=== PATIENT | male | born 1960 | race African-American/Black ===

== ENCOUNTER 2020-10-29 11:28 | Outpatient (REF) | payer OTHER, SELFPAY | END 2020-10-29 11:29 | disposition home or self-care (01) | LOC: HO.LAB 11:28 | PROVIDERS: Visit Provider Internal Medicine | DX: Z20.828 Contact with and (suspected) exposure to other viral communicable diseases (principal) | CPT/HCPCS: C9803; U0003 ==

== ENCOUNTER 2020-11-06 13:42 | Outpatient (REF) | payer OTHER, SELFPAY ==
[2020-11-06 14:15] LABS: MANUAL DIFF FLAG NO
[2020-11-06 14:23] LABS: Basophils Absolute Auto 0.1 X10*3/uL (0.0-0.2); Basophils Percent Auto 0.5 % (0-2); Eosinophils Absolute Auto 0.3 X10*3/uL (0.0-0.4); Eosinophils Percent Auto 2.6 % (0-4); Hematocrit 40.7 % (42-52); Imm Gran Abs Auto 0.06 X10*3/uL (0.00-0.03); Imm Gran Pct Auto 0.5 % (0.0-0.4); Lymphocytes Absolute Auto 3.8 X10*3/uL (1.2-4.9); Lymphocytes Percent Auto 31.2 % (20-40); Mean Corpuscular HGB Conc 31.9 g/dl (31.0-36.0); Mean Corpuscular Hemoglobin 23.5 pg (27.0-33.0); Mean Corpuscular Volume 73.6 fL (80-98); Mean Platelet Volume 9.9 fL (9.4-12.4); Monocytes Absolute Auto 0.6 X10*3/uL (0.1-1.2); Monocytes Percent Auto 4.7 % (2-11); Neutrophils Absolute Auto 7.3 X10*3/uL (2.0-8.3); Neutrophils Percent Auto 60.5 % (45-73); Platelet Count 416 X10*3/uL (160-400); Red Blood Count 5.53 X10*6/uL (4.60-5.80); Red Cell Distribution Width 15.5 % (11.0-16.0); White Blood Count 12.1 X10*3/uL (4.8-10.8)
[2020-11-06 14:46] LABS: Alanine Aminotransferase 17 U/L (0-40); Albumin Level 3.7 g/dL (3.5-5.0); Alkaline Phosphatase 83 U/L (39-117); Anion Gap 11 (12-20); Aspartate Amino Transferase 12 U/L (5-37); Bilirubin Total 0.4 mg/dL (0.0-1.0); Blood Urea Nitrogen 14 mg/dL (9-16); Calcium 9.1 mg/dL (8.4-10.2); Carbon Dioxide 26 mmol/L (22-29); Chloride 104 mmol/L (96-108); Cholesterol 174 mg/dL; Estimated Glomerular Filt Rate > 60; Glucose Random 139 mg/dL (60-115); HDL Cholesterol 43 mg/dL; LDL Cholesterol Calculated 117 mg/dl; Potassium 4.1 mmol/l (3.3-5.1); Sodium 137 mmol/L (135-145); Total Protein 6.3 g/dL (6.5-8.0); Triglycerides 70 mg/dL
[2020-11-06 14:52] LABS: Estimated Average Glucose 120 mg/dL; Hemoglobin A1c % 5.8 %
[2020-11-06 15:07] LABS: Prostate Specific Antigen 0.43 ng/mL (<0.05-4.0); Vitamin D 25-OH Total 15.2 ng/mL (>30)
== END 2020-11-06 13:43 | disposition home or self-care (01) ==
LOC: HO.LAB 13:42
PROVIDERS: Visit Provider Nurse Practitioner Family
DX: Z00.00 Encounter for general adult medical examination without abnormal findings (principal); Z13.220 Encounter for screening for lipoid disorders; Z12.5 Encounter for screening for malignant neoplasm of prostate; Z13.21 Encounter for screening for nutritional disorder
CPT/HCPCS: 36415; 80053; 80061; 82306; 83036; 84153; 85025

== ENCOUNTER 2020-11-18 12:30 | Outpatient (REF) | payer OTHER, SELFPAY ==
--- NOTE | 2020-11-18 12:35 | XR_ITS ---
EXAMINATION: XR CHEST CLINICAL INFORMATION: Shortness of breath, COPD. COMPARISON: 02/06/2017 chest radiographs. TECHNIQUE: 2 views of the chest were obtained. FINDINGS: No significant abnormality is noted involving the heart, lungs, mediastinum, bony thorax or soft tissues. XR/XR chest 2V IMPRESSION: No acute cardiopulmonary process.
== END 2020-11-18 12:31 | disposition home or self-care (01) ==
LOC: HO.XRAY 12:30
PROVIDERS: Visit Provider Nurse Practitioner Family
DX: J44.1 Chronic obstructive pulmonary disease with (acute) exacerbation (principal); F17.200 Nicotine dependence, unspecified, uncomplicated; Z92.89 Personal history of other medical treatment
CPT/HCPCS: 71046

== ENCOUNTER 2021-11-25 14:46 | Outpatient (REF) | payer OTHER, SELFPAY ==
--- NOTE | ~2021-11-25 | XR_ITS ---
EXAMINATION: XR CHEST CLINICAL INFORMATION: Screening for respiratory tuberculosis COMPARISON: Chest radiograph from 11/18/2020 TECHNIQUE: 2 views of the chest were obtained. FINDINGS: No focal consolidation. No pneumothorax. Trachea is midline. Cardiomediastinal silhouette is not enlarged. No large pleural effusions. Degenerative changes of the thoracolumbar spine. Soft tissues are unremarkable. XR/XR chest 2V IMPRESSION: No acute cardiopulmonary process.
== END 2021-11-25 14:47 | disposition home or self-care (01) ==
LOC: HO.XRAY 14:46
PROVIDERS: PCP Nurse Practitioner Family; Visit Provider Nurse Practitioner Family
DX: Z22.7 Latent tuberculosis (principal)
CPT/HCPCS: 71046

== ENCOUNTER → 2022-01-17 16:00 | Outpatient (BNVA) | payer OTHER, SELFPAY | PROVIDERS: PCP Nurse Practitioner Family; Referring Provider Nurse Practitioner Family; Visit Provider Nurse Practitioner | DX: R19.5 Other fecal abnormalities (principal); J44.9 Chronic obstructive pulmonary disease, unspecified; G47.33 Obstructive sleep apnea (adult) (pediatric); Z92.89 Personal history of other medical treatment; Z99.89 Dependence on other enabling machines and devices | CPT/HCPCS: 99202 ==

== ENCOUNTER 2022-03-13 01:54 | Emergency (ER) | payer OTHER, SELFPAY ==
--- NOTE | ~2022-03-13 | CT_ITS ---
EXAMINATION: CT HEAD WITHOUT CONTRAST CLINICAL INFORMATION: Headache COMPARISON: None. TECHNIQUE: Contiguous axial imaging was performed from the skull base to vertex without intravenous contrast. This CT examination was performed using dose optimization techniques as appropriate, variously including the following: * Automated exposure control * Adjustment of mA and/or kV according to patient size (this includes techniques or standardized protocols for targeted exams where dose is matched to indication/reason for exam; i.e. extremities or head) Use of iterative reconstruction technique DLP: 776 mGy-cm. FINDINGS: There is no evidence of acute intracranial hemorrhage or territorial infarction. No abnormal mass effect or midline shift is seen. [place] to white matter differentiation is well preserved. No extra-axial fluid collections are identified. No hydrocephalus. No significant volume loss. There is no abnormal attenuation within the brain parenchyma. The osseous structures and soft tissues are normal. Moderate opacification of the bilateral ethmoid air cells and frontal sinuses. The mastoid air cells and visualized portions of the paranasal sinuses are otherwise well aerated. CT/CT head/brain wo con IMPRESSION: No acute intracranial pathology.
[2022-03-13 02:09] VITALS: BP 124/73; PULSE 85; RESP 18; TEMP 36.2; O2SAT 100; BMI 41.9
[2022-03-13 02:40] VITALS: BP 145/72; PULSE 71; RESP 14; O2SAT 100
--- NOTE | 2022-03-13 02:48 | ED.HA ---
HPI - Headache General Chief Complaint: Headache Stated Complaint: swollen head/migraine Time Seen by Provider: 03/13/22 02:46 History of Present Illness HPI Narrative: 61 years old presented with having headache that is on and off. This time lasting last 2 hours. Mostly over the left side. There is no fever no chills. No neck pain. No diaphoresis. No focal weakness. History of chronic pain history of COPD history of chronic back pain history of hypertension patient from home. No chest pain or shortness breath no diaphoresis no focal weakness. No changes in vision. No photophobia. Related Data Home Medications Medication Instructions Recorded Confirmed aspirin 81 mg tablet,delayed 81 mg PO DAILY 01/17/22 release atorvastatin 40 mg tablet 40 mg PO BEDTIME 01/17/22 chlorthalidone 25 mg tablet 12.5 mg PO QAM 01/17/22 fluticasone propionate 110 2 puff PO BID 01/17/22 mcg/actuation HFA aerosol inhaler (Flovent HFA) ibuprofen 800 mg tablet 800 mg PO TID 01/17/22 lisinopril 30 mg tablet 30 mg PO DAILY 01/17/22 melatonin 5 mg tablet 5 - 10 mg PO BEDTIME PRN 01/17/22 tiotropium 2.5 mcg-olodaterol 2.5 2 puff INHALATION DAILY 01/17/22 mcg/actuation mist for inhalation (Stiolto Respimat) Previous Rx's Medication Instructions Recorded gabapentin 600 mg tablet 600 mg PO TID #270 tab 09/15/20 peg 3350-electrolytes 236 240 ml PO Q10M 1 Days #4000 ml 01/17/22 gram-22.74 gram-6.74 gram-5.86 gram solution (Golytely) Allergies Allergy/AdvReac Type Severity Reaction Status Date / Time Iodinated Contrast Media Allergy Intermediate HIVES Verified 03/13/22 02:13 [IV Dye, Iodine Containing] Review of Systems Review of Systems: Positive headache on the left side no nausea no vomiting no focal weakness. No fever no chills Yes all other systems are reviewed and are negative [facility] Past Medical History Attestation statement: The following information was validated with the patient. Social History Social History Advance Directives: No Advance Directives Information Provided: Yes Physical Exam Vital Signs: Vital Signs: Last Vital Signs Temp 97.2 F 03/13/22 02:09 Pulse 71 03/13/22 02:40 Resp 14 03/13/22 02:40 BP 145/72 H 03/13/22 02:40 Pulse Ox 100 03/13/22 02:40 BMI result Body Mass Index 41.9 Appearance: Alert. Oriented X3. No acute distress. Eyes: Pupils equal, round and reactive to light. ENT: Pharynx normal. Neck: Normal inspection. Neck supple. No lymph nodes noted. No crepitus CVS: Normal heart rate and rhythm. Pulses normal. Normal S1 and S2 Respiratory: No respiratory distress. Breath sounds normal. No Wheezing. No rales Abdomen: Soft and nontender. No rigidity. No distention. good BS x4 Skin: Skin warm and dry. Normal skin color. Normal skin turgor. Extremities: No lower extremity edema. Neurovascular intact to all extremities. No Lacerations. No Rash Neuro: Oriented X 3. No motor deficit. No sensory deficit. Moving all extermities. No slurred speech MDM - Headache MDM Narrative Medical decision making narrative: CT of the head was grossly negative for any acute evidence of bleeding. Gross vision intact. Patient's sed rate was 10. No evidence for temporal arteritis. Electrolytes unremarkable. Patient left prior to discharge. In stable condition. Lab Data Result diagrams: 03/13/22 03:52 03/13/22 03:52 Labs: Lab Results 03/13/22 03/13/22 03/13/22 Range/Units 03:52 03:52 03:52 WBC 12.7 H (4.8-10.8) X10*3/uL RBC 5.48 (4.60-5.80) X10*6/uL Hgb 13.1 L (14.0-18.0) g/dl Hct 40.9 L (42.0-52.0) % MCV 74.6 L (80.0-98.0) fL MCH 23.9 L (27.0-33.0) pg MCHC 32.0 (31.0-36.0) g/dl RDW 15.8 (11.0-16.0) % Plt Count 353 (160-400) X10*3/uL MPV 9.2 L (9.4-12.4) fL Immature Gran % (Auto) 0.2 (0.0-0.4) % Neut % (Auto) 59.1 (45-73) % Lymph % (Auto) 27.8 (20-40) % Hood % (Auto) 7.4 (2-11) % Eos % (Auto) 4.9 H (0-4) % Baso % (Auto) 0.6 (0-2) % Lymph # (Auto) 3.5 (1.2-4.9) X10*3/uL Hood # (Auto) 0.9 (0.1-1.2) X10*3/uL Eos # (Auto) 0.6 H (0.0-0.4) X10*3/uL Baso # (Auto) 0.1 (0.0-0.2) X10*3/uL Abs Immat Gran (auto) 0.03 (0.00-0.03) X10*3/uL Absolute Neuts (auto) 7.5 (2.0-8.3) x10*3/uL Absolute Nucleated RBC 0.000 (0.0-0.012) X10*3/uL Nucleated RBC % (auto) 0.0 (0.0-0.2) /100WBC ESR 10 (0-15) MM/HR Sodium 134 L (135-145) mmol/L Potassium 4.0 (3.3-5.1) mmol/L Chloride 101 (96-108) mmol/L Carbon Dioxide 26 (22-29) mmol/L Anion Gap 11 L (12-20) BUN 19 H (9-16) mg/dL Creatinine 0.77 (0.5-1.4) mg/dL Estim Creat Clear Calc 129.8 Estimated GFR > 60 Random Glucose 117 H (60-115) mg/dL Calcium 9.5 (8.4-10.2) mg/dL C-Reactive Protein 1.44 H (< or = 0.50) mg/dL Discharge Plan Discharge Clinical Impression: Headache Patient Disposition: Elopement Prescriptions: No Action gabapentin 600 mg tablet 600 mg PO TID Qty: 270 1RF peg 3350-electrolytes [Golytely] 236-22.74-6.74 -5.86 gram recon soln 240 ml PO Q10M 1 Days Qty: 4000 0RF Rx Instructions: until fecal effluent is clear; do not exceed a total volume of 2,000 mL lisinopril 30 mg tablet 30 mg PO DAILY 0RF ibuprofen 800 mg tablet 800 mg PO TID 0RF chlorthalidone 25 mg tablet 12.5 mg PO QAM 0RF Stiolto Respimat 2.5-2.5 mcg/actuation mist 2 puff inhalation DAILY 0RF Flovent HFA 110 mcg/actuation HFA aerosol inhaler 2 puff PO BID 0RF melatonin 5 mg tablet 5 - 10 mg PO BEDTIME PRN (Reason: insomnia) 0RF aspirin 81 mg tablet,delayed release (DR/EC) 81 mg PO DAILY 0RF atorvastatin 40 mg tablet 40 mg PO BEDTIME 0RF
[2022-03-13] MEDS: Acetaminophen 325 MG TABLET 650 MG PO (03:55)
[2022-03-13] MEDS: 0.9 % Sodium Chloride 1,000 ML 999 ML IV (03:55)
[2022-03-13] MEDS: Prochlorperazine Edisylate 10 MG/2 ML VIAL IVPUSH (03:55)
[2022-03-13] MEDS: ondansetron HCL 4 MG/2 ML VIAL IVPUSH (03:55)
[2022-03-13 03:56] LABS: Basophils Absolute Auto 0.1 X10*3/uL (0.0-0.2); Basophils Percent Auto 0.6 % (0-2); Eosinophils Absolute Auto 0.6 X10*3/uL (0.0-0.4); Eosinophils Percent Auto 4.9 % (0-4); Hematocrit 40.9 % (42.0-52.0); Hemoglobin 13.1 g/dl (14.0-18.0); Imm Gran Abs Auto 0.03 X10*3/uL (0.00-0.03); Imm Gran Pct Auto 0.2 % (0.0-0.4); Lymphocytes Absolute Auto 3.5 X10*3/uL (1.2-4.9); Lymphocytes Percent Auto 27.8 % (20-40); MANUAL DIFF FLAG NO; Mean Corpuscular Hemoglobin 23.9 pg (27.0-33.0); Mean Corpuscular Volume 74.6 fL (80.0-98.0); Mean Platelet Volume 9.2 fL (9.4-12.4); Monocytes Absolute Auto 0.9 X10*3/uL (0.1-1.2); Monocytes Percent Auto 7.4 % (2-11); Neutrophils Absolute Auto 7.5 x10*3/uL (2.0-8.3); Neutrophils Percent Auto 59.1 % (45-73); Platelet Count 353 X10*3/uL (160-400); Red Blood Count 5.48 X10*6/uL (4.60-5.80); Red Cell Distribution Width 15.8 % (11.0-16.0); White Blood Count 12.7 X10*3/uL (4.8-10.8)
[2022-03-13 04:20] LABS: Anion Gap 11 (12-20); Blood Urea Nitrogen 19 mg/dL (9-16); C Reactive Protein 1.44 mg/dL (< or = 0.50); Calcium 9.5 mg/dL (8.4-10.2); Carbon Dioxide 26 mmol/L (22-29); Chloride 101 mmol/L (96-108); Creatinine Clr Calc Pharmacy 129.8; Estimated Glomerular Filt Rate > 60; Glucose Random 117 mg/dL (60-115); Sodium 134 mmol/L (135-145)
[2022-03-13 04:32] LABS: Erythrocyte Sedimentation Rate 10 MM/HR (0-15)
== END 2022-03-13 04:30 | disposition left against medical advice (07) ==
PROVIDERS: Emergency Provider Emergency Medicine Emergency Medical Services
DX: R51.9 Headache, unspecified (principal); Z79.899 Other long term (current) drug therapy
CPT/HCPCS: 36415; 70450; 80048; 85025; 85652; 86140; 96361; 96372; 96374; 96375; 99283; 99284; J2405

== ENCOUNTER → 2022-05-13 11:20 | Outpatient (BNV) | payer MEDICAID, OTHER, MEDICARE, SELFPAY | PROVIDERS: PCP Nurse Practitioner Family; Visit Provider Internal Medicine Medical Oncology | DX: D72.829 Elevated white blood cell count, unspecified (principal) | CPT/HCPCS: 99204; 99213 ==

== ENCOUNTER 2022-05-25 11:29 | Outpatient (REF) | payer OTHER, SELFPAY | END 2022-05-25 11:30 | disposition home or self-care (01) | LOC: HO.LAB 11:29 | PROVIDERS: PCP Nurse Practitioner Family; Visit Provider Internal Medicine Medical Oncology | DX: Z13.89 Encounter for screening for other disorder (principal) ==

== ENCOUNTER → 2022-07-20 19:30 | Outpatient (REF) | payer OTHER, SELFPAY | LOC: HO.SL 19:30 | PROVIDERS: Visit Provider Nurse Practitioner Family | DX: G47.33 Obstructive sleep apnea (adult) (pediatric) (principal) | CPT/HCPCS: 95810 ==

== ENCOUNTER 2022-08-26 09:30 | Day surgery (SDC) | payer OTHER, SELFPAY ==
[2022-08-23 15:27] VITALS: BMI 40.8
--- NOTE | 2022-08-25 13:32 | HO.ANESPROP2 ---
Documented by User: Aide Sheridan NP 08/25/22 13:33 HPI - Anesthesia Eval Consult details Narrative: 62yo M for Colonoscopy PMF Active Problems Active Problems: All Active Problems (Updated 05/13/22 @ 11:35 by Lilibeth Rodriguez MD) Obstructive sleep apnea (adult) (pediatric) (Acute) Morbid obesity (Acute) HTN (hypertension), benign (Acute) Chronic back pain (Acute) History of positive PPD (Acute) Smoker (Acute) COPD (chronic obstructive pulmonary disease) (Acute) Impaired fasting glucose (Acute) Chronic idiopathic constipation (Acute) Erectile dysfunction (Acute) Colon cancer screening (Acute) Positive FIT (fecal immunochemical test) (Acute) History of positive PPD (Acute) Leucocytosis (Acute) Past Medical History Medical History COPD (chronic obstructive pulmonary disease) Obstructive sleep apnea (adult) (pediatric) Family History Family History (Updated 08/05/22 @ 10:29 by Tejal Quinn CMA) Mother Diabetes Brittle bone disease COPD (chronic obstructive pulmonary disease) High blood pressure Thyroid disease Thyroid cancer Father Lupus High blood pressure Surgical History Surgical History History of back surgery Social History Social History (Updated 08/05/22 @ 10:32 by Tejal Quinn CMA) Household Members: Spouse Housing: House Are you a primary director of healthcare systems to a significant other at home: No Do you presently have visiting nurse or other home services: No Patient Tobacco Use Status: Current everyday Tobacco user Tobacco use type: Cigarette Cigarettes Per Day: 6 Patient Given Instructions on How to Stop Smoking: Yes Date Education Initiated: 08/26/22 Use of substances other than those prescribed or required for medical reasons: No Are you DNR?: No Advance Directives: No Advance Directives Information Provided: Yes service: No Current occupational status: disabled Meds Allergies Allergy/AdvReac Type Severity Reaction Status Date / Time Iodinated Contrast Media Allergy Unknown Verified 08/25/22 12:07 Home Medications Medication Instructions Recorded Confirmed Last Taken Type aspirin 81 mg tablet,delayed 81 mg PO DAILY 01/17/22 08/05/22 Unknown History release atorvastatin 40 mg tablet 40 mg PO BEDTIME 01/17/22 08/05/22 Unknown History chlorthalidone 25 mg tablet 12.5 mg PO QAM 01/17/22 08/05/22 Unknown History fluticasone propionate 110 2 puff PO BID 01/17/22 08/05/22 Unknown History mcg/actuation HFA aerosol inhaler (Flovent HFA) ibuprofen 800 mg tablet 800 mg PO TID 01/17/22 08/05/22 Unknown History lisinopril 30 mg tablet (Zestril) 30 mg PO DAILY 01/17/22 08/05/22 Unknown History melatonin 5 mg tablet 5 - 10 mg PO BEDTIME PRN insomnia 01/17/22 08/05/22 Unknown History tiotropium 2.5 mcg-olodaterol 2.5 2 puff inhalation DAILY 01/17/22 08/05/22 Unknown History mcg/actuation mist for inhalation (Stiolto Respimat) duloxetine 30 mg capsule,delayed 1 cap PO DAILY 05/13/22 08/05/22 Unknown History release ferrous sulfate 325 mg (65 mg 1 tab PO Q OTHER DAY 05/13/22 08/05/22 Unknown History iron) tablet (FeroSul) simethicone 125 mg chewable tablet 1 tab PO TID PRN gas 05/13/22 08/05/22 Unknown History (Gas Relief Extra Strength) Exam Exam Date and Time: August 25, 2022 133 Height,Weight and Vital Signs: Height 5 ft 8 in Weight 122.016 kg Pertinent Lab Results Pertinent Lab Results: Laboratory Tests 08/05/22 08/05/22 10:23 10:23 WBC 10.8 Hgb 13.4 L Hct 41.6 L Plt Count 363 Sodium 135 Potassium 4.6 Chloride 100 Carbon Dioxide 25 BUN 15 Creatinine 0.86 Assessment and Plan Assessment Anesthesia Assessment: Chart Reviewed Documented by User: Jazz Farias MD 08/26/22 11:16 [facility] Past Medical History Medical History COPD (chronic obstructive pulmonary disease) Obstructive sleep apnea (adult) (pediatric) Family History Family History (Updated 08/05/22 @ 10:29 by Tejal Quinn CMA) Mother Diabetes Brittle bone disease COPD (chronic obstructive pulmonary disease) High blood pressure Thyroid disease Thyroid cancer Father Lupus High blood pressure Family history of problems with anesthesia: No Surgical History Surgical History History of back surgery History of Problems with Anesthesia: No Social History Social History (Updated 08/05/22 @ 10:32 by Tejal Quinn CMA) Household Members: Spouse Housing: House Are you a primary director of healthcare systems to a significant other at home: No Do you presently have visiting nurse or other home services: No Patient Tobacco Use Status: Current everyday Tobacco user Tobacco use type: Cigarette Cigarettes Per Day: 6 Patient Given Instructions on How to Stop Smoking: Yes Date Education Initiated: 08/26/22 Use of substances other than those prescribed or required for medical reasons: No Are you DNR?: No Advance Directives: No Advance Directives Information Provided: Yes service: No Current occupational status: disabled Meds Allergies Allergy/AdvReac Type Severity Reaction Status Date / Time Iodinated Contrast Media Allergy Unknown Verified 08/25/22 12:07 Home Medications Medication Instructions Recorded Confirmed Last Taken Type aspirin 81 mg tablet,delayed 81 mg PO DAILY 01/17/22 08/05/22 Unknown History release atorvastatin 40 mg tablet 40 mg PO BEDTIME 01/17/22 08/05/22 Unknown History chlorthalidone 25 mg tablet 12.5 mg PO QAM 01/17/22 08/05/22 Unknown History fluticasone propionate 110 2 puff PO BID 01/17/22 08/05/22 Unknown History mcg/actuation HFA aerosol inhaler (Flovent HFA) ibuprofen 800 mg tablet 800 mg PO TID 01/17/22 08/05/22 Unknown History lisinopril 30 mg tablet (Zestril) 30 mg PO DAILY 01/17/22 08/05/22 Unknown History melatonin 5 mg tablet 5 - 10 mg PO BEDTIME PRN insomnia 01/17/22 08/05/22 Unknown History tiotropium 2.5 mcg-olodaterol 2.5 2 puff inhalation DAILY 01/17/22 08/05/22 Unknown History mcg/actuation mist for inhalation (Stiolto Respimat) duloxetine 30 mg capsule,delayed 1 cap PO DAILY 05/13/22 08/05/22 Unknown History release ferrous sulfate 325 mg (65 mg 1 tab PO Q OTHER DAY 05/13/22 08/05/22 Unknown History iron) tablet (FeroSul) simethicone 125 mg chewable tablet 1 tab PO TID PRN gas 05/13/22 08/05/22 Unknown History (Gas Relief Extra Strength) Exam Airway Mallampati Class: II (Missing a couple, denies anything loose) TM Dist: >3cm Neck ROM: Full Heart: rrr Lungs: cta Assessment and Plan Assessment Anesthesia Assessment: Anesthesia Plan Discussed Final Anesthetic Review Family History of Problems with Anesthesia: No History of Problems with Anesthesia: No NPO: Yes ASA Class: III Final Preanesthetic Review: No Changes in Pt Med Stat, Meds/Allgs Chart Reviewed and Consent Obtained/Reviewed Patient Risk: Intermediate Procedure Risk: Intermediate Anesthetic Plan Anesthetic Plan: MAC: Disposition: Standard PACU
[2022-08-26 10:51] VITALS: BP 147/80; PULSE 67; RESP 16; TEMP 36.6; O2SAT 98; BMI 39.5
--- NOTE | 2022-08-26 11:22 | MHC.SHP ---
Pre-Procedural Eval Section A Date of Service: 08/26/22 Section B Chief Complaint: hx medical tx,fecal abnormalities,screening Details of Present Illness: Colon cancer screening Relevant Family History (Specify if Yes): Yes Present Medications: see Short Stay Collaborative assessment Medical History: Significant History (Obstructive sleep apnea Morbid obesity Hypertension Chronic pain back pain History of positive PPD - 1981 s/p tx with INH Smoker COPD Impaired fasting glucose Constipation Erectile dysfunction) History of Previous Operations: Relevant previous surgery/procedure and date(s) (L4-L5 hardware and discectomy) Allergies: Allergies Allergy/AdvReac Type Severity Reaction Status Date / Time Iodinated Contrast Media Allergy Unknown Verified 08/25/22 12:07 Review of Systems Sugical H&P ROS: Negative: Constitution, Cardiovascular, Respiratory and Gastrointestinal Exam Surgical H&P Exam: Normal: Heart, Normal: Lungs, Normal: Extremities and Normal: Abdomen Plan Diagnosis/Plan: Unchanged I have reviewed the history and physical and performed a pertinent physical examination on my patient. No changes have occurred unless specified.
[2022-08-26] MEDS: Lactated Ringers 1,000 ML 100 ML IVCONT (11:33)
--- NOTE | 2022-08-26 11:50 | P.OP_ITS ---
Operative Note Operative Note Date of Service: 08/26/22 Narrative: Pre-op diagnosis: Colon cancer screening Post-op diagnosis:?other (Colon polyps, diverticulosis, hemorrhoids) Procedure: COLONOSCOPY TILL CECUM WITH BIOPSIES AND SNARE POLYPECTOMY Consent: Indications for the procedure and potential complications of bleeding, perforation, reaction to medications and missed diagnosis were discussed with the patient and informed consent was obtained. Instrument: Olympus PCF H 190 L variable stiffness pediatric colonoscope Monitoring: Vital signs and clinical assessment, intermittent blood pressure monitoring, continuous EKG monitoring, Pulse oximetry and Carbon Dioxide monitoring were done throughout the procedure. Colon withdrawl time was 22 minutes. Procedure: The patient was placed in the left lateral decubitis position and pre-procedure medications were administered. After a digital rectal examination of the ano-rectum, the video colonoscope was inserted into the rectum and advanced through the colon to the cecum. The colonoscope was slowly withdrawn in a retrograde panoramic fashion and the colon mucosa was carefully examined including a retroflexed view of the rectum. Findings and interventions are described below. Procedure Difficulty:? Colon was long and there was some loop formation - no maneuvers were required Findings: Terminal Ileum: Not evaluated Cecum:? Normal Ascending Colon:? Normal Transverse Colon:? A 10 -12 mm sessile polyp in the mid TC removed with a hot snare. A 3-4 mm diminutive appearing polyp removed with a cold biopsy Descending Colon:? Normal Sigmoid Colon:? Moderate diverticulosis Rectum:? Normal Ano-rectum:? Moderate internal hemorrhoids Colon preparation:? Good after some irrigation Impression and Post Procedure Diagnosis: Colonoscopy Findings: One small and one medium sized polyps removed Moderate diverticulosis seen in the sigmoid colon Moderate hemorrhoids on retroflexed exam. Plan: Await pathology results Patient has an appointment on 09/09/22 in the GI Clinic with? Keke Lafleur NP . Repeat Colonoscopy interval based on path results - in 3-5 years if polyps are adenomatous and 10 years if polyps are hyperplastic. Above findings were reviewed with the patient and colon polyps and diverticulosis handouts were given in the discharge area Surgeon: Jd Smiley MD Anesthesia:?MAC (Dr Kennedy) Was an Chief Investment Officer used for this Procedure?:?Yes Chief Investment Officer:?Franki Franklin Estimated blood loss (mL):?0 Pathology:?other (A-? TRANSVERSE COLON POLYPS) Condition:?stable Disposition:?PACU
[2022-08-26 12:33] VITALS: BP 104/63; PULSE 73; RESP 16; TEMP 36.2; O2SAT 99
[2022-08-26 12:55] VITALS: BP 133/70; PULSE 64; RESP 18; TEMP 36.2; O2SAT 99
== END 2022-08-26 13:55 | disposition home or self-care (01) ==
PROVIDERS: PCP Nurse Practitioner Family; Visit Provider Internal Medicine Gastroenterology
PROC: 0DJD8ZZ Inspection of Lower Intestinal Tract, Via Natural or Artificial Opening Endoscopic (ICD-10-PCS; CPT 45378; principal; 2022-08-26 11:10)
DX: Z12.11 Encounter for screening for malignant neoplasm of colon (principal); D12.3 Benign neoplasm of transverse colon; K57.30 Diverticulosis of large intestine without perforation or abscess without bleeding; K64.8 Other hemorrhoids; K59.00 Constipation, unspecified; G47.33 Obstructive sleep apnea (adult) (pediatric); J44.9 Chronic obstructive pulmonary disease, unspecified; I10 Essential (primary) hypertension; R73.01 Impaired fasting glucose; R76.11 Nonspecific reaction to tuberculin skin test without active tuberculosis; E66.01 Morbid (severe) obesity due to excess calories; Z68.41 Body mass index [BMI] 40.0-44.9, adult; F17.210 Nicotine dependence, cigarettes, uncomplicated; Z79.82 Long term (current) use of aspirin; Z79.899 Other long term (current) drug therapy; Z79.51 Long term (current) use of inhaled steroids; Z91.041 Radiographic dye allergy status
CPT/HCPCS: 45385; 45380; 88305

== ENCOUNTER → 2022-09-09 10:47 | Outpatient (BNVA) | payer OTHER, SELFPAY | PROVIDERS: PCP Nurse Practitioner Family; Visit Provider Nurse Practitioner | DX: D12.6 Benign neoplasm of colon, unspecified (principal); K59.04 Chronic idiopathic constipation | CPT/HCPCS: 99212 ==

== ENCOUNTER 2023-07-31 10:07 | Outpatient (REF) | payer MEDICARE, MEDICAID, SELFPAY | END 2023-07-31 10:08 | disposition home or self-care (01) | LOC: HO.LNP 10:07 | PROVIDERS: PCP Nurse Practitioner Family; Referring Provider Nurse Practitioner Family; Visit Provider Surgery | DX: K64.5 Perianal venous thrombosis (principal); Z79.899 Other long term (current) drug therapy | CPT/HCPCS: 46320; 88304 ==

== ENCOUNTER 2023-07-31 10:07 | Outpatient (AMB) | payer MEDICARE, MEDICAID, SELFPAY ==
--- NOTE | 2023-07-31 10:08 | A.OFFVIS_ITS ---
Intake Vital Signs 07/31/23 10:11 Height 5 ft 8.5 in Weight 253 lb BMI 37.9 BP 129/63 Blood Pressure Location Rt brachial Position Sitting Pulse 62 Intake Visit Reasons: External hemorrhoids Intake Note: Patient referred for external hemorrhoids. C/o bleeding. Reports colace helps with BM. Level Vial Inspector Required: No Accompanied by: Self / Same As Patient Allergies Iodinated Contrast Media Allergy (Verified 07/31/23 10:13) Unknown Medication List - Last Reconciled 07/31/23 by Ti Spain MD aspirin 81 mg PO DAILY atorvastatin 40 mg PO BEDTIME chlorthalidone 12.5 mg PO QAM cholecalciferol (vitamin D3) (Vitamin D3) 50 mcg PO DAILY duloxetine 1 cap PO DAILY ferrous sulfate (FeroSul) 1 tab PO Q OTHER DAY fluticasone propionate 110 mcg/actuation (Flovent HFA) 2 puffs PO BID fluticasone propionate 50 mcg/actuation 1 spray intranasal BID gabapentin 100 mg PO TID ibuprofen 800 mg PO TID lisinopril (Zestril) 30 mg PO DAILY melatonin 5 - 10 mg PO BEDTIME PRN pregabalin 50 mg PO BID sennosides (senna) 17.2 mg PO DAILY sildenafil (Viagra) 50 mg PO DAILY PRN simethicone (Gas Relief Extra Strength) 1 tab PO TID PRN tiotropium-olodaterol 2.5-2.5 mcg/actuation (Stiolto Respimat) 2 puffs inhalation DAILY HPI HPI Comments History of Present Illness Details Patient has a chronic history of constipation now presents with thrombosed external hemorrhoid. He has had this several days time. It is swollen, painful, and draining. He wished to have this evaluated. He has never had such symptoms before. He denies any anal receptive practice. Otherwise tolerates his diet. Patient has had colonoscopy x2. Chart was reviewed patient evaluated [facility] Medical History Obstructive sleep apnea (adult) (pediatric) COPD (chronic obstructive pulmonary disease) Surgical History History of back surgery Family History Mother Diabetes Brittle bone disease COPD (chronic obstructive pulmonary disease) High blood pressure Thyroid disease Thyroid cancer Father Lupus High blood pressure Social History (Updated 07/31/23 @ 10:15 by LUCIUS Cevallos) Household Members: Spouse Housing: House Are you a primary career specialist to a significant other at home: No Do you presently have visiting nurse or other home services: No Patient Tobacco Use Status: Current everyday Tobacco user Tobacco use type: Cigarette Cigarettes Per Day: 2 Current occupational status: disabled Physical Exam Vital Signs: Last Vital Signs Pulse 62 07/31/23 10:11 BP 129/63 07/31/23 10:11 BMI result Body Mass Index 37.9 GI Other: Abdomen corpulent, soft, benign Rectal exam in prone position demonstrates a massive right 2 o'clock position thrombosed external hemorrhoid. The rectal exam was deferred secondary to patient discomfort. Office Procedures Excision Details: Risks, benefits, alternatives of thrombosed external hemorrhoidectomy were reviewed with the patient and included but not limited to bleeding, infection, recurrence, numbness, pain, scarring, incontinence and the patient was to proceed. All questions were answered. Patient underwent 1% lidocaine and Betadine prep after appropriate positioning, and uneventful excision of a large thrombosed external hemorrhoid measuring approximately 2 cm.. Wound was secured hemostasis and dressing applied. Patient tolerated procedure well. 18333-xmxyh/arms/legs 2.1-3cm 44531-ytziw/arms/legs 3.1-4cm Procedure code (CPT) selection complete Office Meds lidocaine 1 %-epinephrine 1:100,000 injection solution Performing Provider: Ti Spain MD [place] [facility] [place] [facility] Administered by: Ti Spain MD on 07/31/23 10:43 Dose Route Admin Location Dispensed Lot Number Expiration Date [facility] Real Time Analyst 10 mL Infiltration 10 mL Assessment & Plan Assessment & Plan (1) Thrombosed external hemorrhoids: Code(s): K64.5 - Perianal venous thrombosis Plan: Patient has been given local instructions including Sitz baths, ice pack, stool softeners/bran recommendations, analgesics, and will see me as directed or p.r.n. Orders: Orders AMB Excision Today K64.5 - Perianal venous thrombosis Medications: New hydrocodone-acetaminophen 5-325 mg Partial Fill upon patient request. 1 tab PO Q4-6H PRN 30 tabs 0RF pain Coding Level of Care Code New Pt Level 4 (58324) Diagnoses Thrombosed external hemorrhoids K64.5 CPT Codes Trunk/Arms/Legs - CPT: 86601-wwzxf/arms/legs 2.1-3cm ([id number]) Trunk/Arms/Legs - CPT: 08896-mlpft/arms/legs 3.1-4cm ([id number])
[2023-07-31 10:11] VITALS: BP 129/63; PULSE 62; BMI 37.9
== END 2023-07-31 10:38 | disposition home or self-care (01) ==
PROVIDERS: PCP Nurse Practitioner Family; Referring Provider Nurse Practitioner Family; Visit Provider Surgery
DX: K64.5 Perianal venous thrombosis (principal)
CPT/HCPCS: 46320; 99204

== ENCOUNTER 2023-08-08 10:32 | Outpatient (AMB) | payer MEDICARE, MEDICAID, SELFPAY ==
[2023-08-08 10:44] VITALS: BP 138/62; PULSE 75; BMI 38.1
--- NOTE | 2023-08-08 10:44 | A.OFFVIS_ITS ---
Intake Vital Signs 08/08/23 10:44 Height 5 ft 8.5 in Weight 254 lb BMI 38.1 BP 138/62 Blood Pressure Location Rt brachial Position Sitting Pulse 75 Intake Visit Reasons: s/p excision of thrombosed external hemorrhoid Intake Note: Patient here s/p exc of thrombosed external hemorrhoid. Reports healing well. Accidentally took scab off and site became tender. C/o burning sensation after BM. No longer taking rx pain meds. Meter/Relay Technician Required: No Accompanied by: Self / Same As Patient Allergies Iodinated Contrast Media Allergy (Verified 08/08/23 10:46) Unknown HPI HPI Comments History of Present Illness Details Aside from incisional discomfort which is improving, patient is doing well. He has time diet. Having normal bowel habits. He has minimal drainage from his hemorrhoidectomy wound. [facility]LY [facility] Medical History Obstructive sleep apnea (adult) (pediatric) COPD (chronic obstructive pulmonary disease) Surgical History (Updated 08/08/23 @ 10:52 by LUCIUS Cevallos) Hx of surgical procedure (07/31/23) History of back surgery Family History Mother Diabetes Brittle bone disease COPD (chronic obstructive pulmonary disease) High blood pressure Thyroid disease Thyroid cancer Father Lupus High blood pressure Social History Household Members: Spouse Housing: House Are you a primary clinical care manager to a significant other at home: No Do you presently have visiting nurse or other home services: No Patient Tobacco Use Status: Current everyday Tobacco user Tobacco use type: Cigarette Cigarettes Per Day: 2 Current occupational status: disabled Physical Exam Vital Signs: Last Vital Signs Pulse 75 08/08/23 10:44 BP 138/62 08/08/23 10:44 BMI result Body Mass Index 38.1 GI Other: Abdomen soft. Hemorrhoidectomy wound healing uneventfully. Assessment & Plan Assessment & Plan (1) Thrombosed external hemorrhoids: Code(s): K64.5 - Perianal venous thrombosis Plan Patient has been given local instructions, and will follow-up p.r.n. Coding Level of Care Code Global (35376) Diagnoses Thrombosed external hemorrhoids K64.5
== END 2023-08-08 10:53 | disposition home or self-care (01) ==
PROVIDERS: PCP Nurse Practitioner Family; Visit Provider Surgery
DX: K64.5 Perianal venous thrombosis (principal)
CPT/HCPCS: 99024

== ENCOUNTER → 2023-08-08 10:32 | Outpatient (BNVA) | payer MEDICARE, MEDICAID, SELFPAY | PROVIDERS: PCP Nurse Practitioner Family; Visit Provider Surgery ==

== ENCOUNTER 2023-09-05 11:31 | Outpatient (REF) | payer MEDICARE, MEDICAID, SELFPAY ==
[2023-09-05 13:58] LABS: Estimated Average Glucose 123 mg/dL; Hemoglobin A1c % 5.9 % (<6.0)
[2023-09-05 14:54] LABS: Alanine Aminotransferase 21 U/L (0-40); Albumin Level 3.8 g/dL (3.5-5.0); Alkaline Phosphatase 87 U/L (39-117); Anion Gap 13 (12-20); Aspartate Amino Transferase 16 U/L (5-37); Bilirubin Total 0.6 mg/dL (0.0-1.0); Blood Urea Nitrogen 12 mg/dL (9-16); Calcium 9.5 mg/dL (8.4-10.2); Carbon Dioxide 25 mmol/L (22-29); Chloride 103 mmol/L (96-108); Cholesterol 114 mg/dL (<200); Estimated Glomerular Filt Rate > 60; Glucose Random 93 mg/dL (60-115); HDL Cholesterol 35 mg/dL (>40); LDL Cholesterol Calculated 68 mg/dL (<100); Potassium 4.5 mmol/L (3.3-5.1); Sodium 136 mmol/L (135-145); Total Protein 6.8 g/dL (6.5-8.0); Triglycerides 58 mg/dL (<150)
== END 2023-09-05 11:32 | disposition home or self-care (01) ==
LOC: HO.HHCL 11:31
PROVIDERS: Visit Provider Nurse Practitioner Family
DX: Z00.00 Encounter for general adult medical examination without abnormal findings (principal); R73.01 Impaired fasting glucose; I10 Essential (primary) hypertension
CPT/HCPCS: 36415; 80053; 80061; 83036

== ENCOUNTER 2023-12-18 13:52 | Outpatient (REF) | payer MEDICARE, MEDICAID, SELFPAY ==
--- NOTE | ~2023-12-18 | XR_ITS ---
EXAMINATION: XR KNEE, RIGHT CLINICAL INFORMATION: Pain in right knee following fall COMPARISON: None available. TECHNIQUE: Four views of the right knee. FINDINGS: No fracture or joint effusion. Alignment is anatomic. Joint spaces are maintained. No abnormal soft tissue calcification. XR/XR knee RT 3V IMPRESSION: Normal right knee.
--- NOTE | ~2023-12-18 | XR_ITS ---
EXAMINATION: XR LUMBOSACRAL SPINE WITH OBLIQUES CLINICAL INFORMATION: Pain in a low back following fall 3 weeks ago COMPARISON: 05/18/2016 TECHNIQUE: AP, both oblique, and lateral views of the lumbar spine. Lateral view of the lumbosacral junction. FINDINGS: Patient is status post L4-L5 posterior fusion. There is grade 1 anterior listhesis of L3 over L4 low dose since previous examination. There is narrowing of L4-L5 intervertebral disc spaces. Hardware is intact. Pedicles are preserved. Soft tissues unremarkable XR/XR lumbar spine 4V min IMPRESSION: New since 2016 anterior listhesis of L3 over L4 and stable position of hardware at the level of L4-L5.
== END 2023-12-18 13:53 | disposition home or self-care (01) ==
LOC: HO.HHCX 13:52
PROVIDERS: Visit Provider Emergency Medicine
DX: S39.012A Strain of muscle, fascia and tendon of lower back, initial encounter (principal); M25.561 Pain in right knee; X58.XXXA Exposure to other specified factors, initial encounter; Y93.9 Activity, unspecified; Y92.9 Unspecified place or not applicable; Y99.9 Unspecified external cause status
CPT/HCPCS: 72110; 73562

== ENCOUNTER 2024-04-01 13:59 | Outpatient (REF) | payer MEDICARE, MEDICAID, SELFPAY ==
--- NOTE | ~2024-04-01 | XR_ITS ---
EXAMINATION: XR CHEST CLINICAL INFORMATION: Persistent asthma and cough with shortness of breath COMPARISON: 11/25/2021 TECHNIQUE: 2 views of the chest were obtained. FINDINGS: No significant abnormality is noted involving the heart, lungs, mediastinum, bony thorax or soft tissues. Degenerative changes are again seen in the spine with mild scoliosis. XR/XR chest 2V IMPRESSION: Unremarkable examination.
== END 2024-04-01 14:00 | disposition home or self-care (01) ==
LOC: HO.HHCX 13:59
PROVIDERS: Visit Provider Internal Medicine
DX: Z13.89 Encounter for screening for other disorder (principal)
CPT/HCPCS: 71046

== ENCOUNTER 2024-04-01 14:21 | Outpatient (REF) | payer MEDICARE, MEDICAID, SELFPAY ==
[2024-04-01 17:29] LABS: MANUAL DIFF FLAG NO
[2024-04-01 17:43] LABS: Basophils Absolute Auto 0.1 X10*3/uL (0.0-0.2); Basophils Percent Auto 0.5 % (0-2); Eosinophils Absolute Auto 0.7 X10*3/uL (0.0-0.4); Eosinophils Percent Auto 5.9 % (0-4); Hematocrit 44.1 % (42.0-52.0); Imm Gran Abs Auto 0.04 X10*3/uL (0.00-0.03); Imm Gran Pct Auto 0.3 % (0.0-0.4); Lymphocytes Percent Auto 25.6 % (20-40); Mean Corpuscular HGB Conc 31.7 g/dl (31.0-36.0); Mean Corpuscular Hemoglobin 24.1 pg (27.0-33.0); Mean Corpuscular Volume 75.8 fL (80.0-98.0); Mean Platelet Volume 9.8 fL (9.4-12.4); Monocytes Percent Auto 8.6 % (2-11); Neutrophils Absolute Auto 6.9 x10*3/uL (2.0-8.3); Neutrophils Percent Auto 59.1 % (45-73); Platelet Count 372 X10*3/uL (160-400); Red Blood Count 5.82 X10*6/uL (4.60-5.80); Red Cell Distribution Width 17.5 % (11.0-16.0); White Blood Count 11.6 X10*3/uL (4.8-10.8)
[2024-04-04 11:03] LABS: TS Negative Control Passed; TS Panel A 27; TS Panel B 136; TS Positive Control Passed; TSpotTB Positive (Negative)
== END 2024-04-01 14:22 | disposition home or self-care (01) ==
LOC: HO.HHCL 14:21
PROVIDERS: Internal Medicine; Visit Provider Internal Medicine Medical Oncology
DX: J06.9 Acute upper respiratory infection, unspecified (principal); J45.40 Moderate persistent asthma, uncomplicated; D72.829 Elevated white blood cell count, unspecified
CPT/HCPCS: 36415; 71046; 85025; 86481

== ENCOUNTER 2024-08-20 00:29 | Emergency (ER) | payer MEDICARE, MEDICAID, SELFPAY ==
[2024-08-20 00:55] VITALS: BP 114/60; PULSE 70; RESP 16; TEMP 36.8; O2SAT 100; BMI 37.0
[2024-08-20 01:27] VITALS: BP 154/71; PULSE 63; RESP 16; TEMP 36.1; O2SAT 97
--- OUTSIDE RECORDS SUMMARY | 2024-08-20 02:01 | XMS_ITS | Continuity of Care Document ---
Author Organization [facility] Address [address] [place] [address] - Encounter [facility] [id number] Date(s): 03/14/24 - 03/14/24 [facility] [place], [place] - [place] Discharge Disposition: Discharged to home Attending Physician: Shraddha Mujica MD Allergies, Adverse Reactions, Alerts Substance Reaction Severity Status contrast media (iodine-based) Active Medications albuterol 2.5 mg/3 mL (0.083%) inhalation solution 2.5 MG = 3 ML, Inhalation, Q6H, PRN for wheezing, # 25 EA, 0 Refill(s) Start Date: 03/14/24 Status: Ordered predniSONE 20 mg oral tablet 60 MG = 3 TAB, PO, Daily, BEGIN ON 03/15/2024, # 12 TAB, 0 Refill(s) Start Date: 03/14/24 Stop Date: 03/18/24 Status: Ordered Ventolin HFA 90 mcg/inh inhalation aerosol = 1 PUFF, Inhalation, Q4H, PRN for wheezing, # 18 G, 0 Refill(s) Start Date: 03/14/24 Status: Ordered Problem List Condition Confirmation Course Effective Dates Status H ealth Status Informant COPD - Chronic obstructive pulmonary disease Confirmed Active Hyperlipidemia Confirmed Active Hypertension Confirmed Active Tobacco use Confirmed Active Procedures Procedure Date Related Diagnosis Body Site Status back Completed Results Most recent to oldest [Reference Range]: 2018 Novel Coronavirus - IRCOV Negative *ND* (03/14/24 1:01 PM) Radiology Reports * Exam Date Time Procedure Performing Provider Status 03/14/24 1:16 PM Chest PA and Lat Karolyn Lorenzo; Walt (Verified) Notes: (Chest PA and Lat) Reason For Exam: Shortness of Breath Report PATIENT NAME: YVROSE LEYVA, , : 1960, [facility] TECHNIQUE: 2 view chest. HISTORY: Shortness of breath and cough COMPARISON: None FINDINGS: Pertinent lines and hardware: None Lungs: The lungs demonstrate no focal consolidation or pleural effusion. No pneumothorax. Mediastinum: No significant findings Bones/Soft Tissues: No acute osseous abnormality is seen. IMPRESSION: No acute pulmonary disease. Electronically Signed by: Jorge Barry MD 03/14/24 13:49 Vital Signs Most recent to oldest [Reference Range]: 1 2 Temperature Oral [36.1-38 DegC] 36.7 Deg C (03/14/24 1:04 PM) Heart Rate [51-100 bpm] 86 bpm (03/14/24 1:24 PM) 83 bpm (03/14/24 1:04 PM) Respiratory Rate [13-20 br/min] 18 br/mi n (03/14/24 1:24 PM) 22 br/min *High* (03/14/24 1:04 PM) Pulse Ox [89 %] 99 % (03/14/24 1:24 PM) 98 % (03/14/24 1:04 PM) Oxygen Source Room Air (03/14/24 1:04 PM) Blood Pressure [101-170/(ref erence range unavailable) mmHg] 160/87mmHg (03/14/24 1:04 PM) Blood Pressure Mean 111 mmHg (03/14/24 1:04 PM) Orthostatic Patient Position Sitting (03/14/24 1:04 PM) Blood Pressure Location Arm Left Upper (03/14/24 1:04 PM) Social History Social History Type Response Alcohol Alcohol Use: Current . Frequency: 1-2 times per week. Tobacco Smoking tobacco use: 4 or less cigarettes(less than 1/4 pack)/day in last 30 days. Smoking Status Never entered on: 03/14/24 Sex Male Hospital Discharge Instructions Patient Education 03/14/2024 15:50:21 Wheezing or Bronchoconstriction Wheezing or Bronchoconstriction: Care Instructions Your Care Instructions Wheezing is a whistling noise made during breathing. It occurs when the small airways, or bronchialtubes, that lead to your lungs swell or contract (spasm) and become narrow. This narrowing is called bronchoconstriction. When your airways constrict, it is hard for air to pass through and this makes it hard for you to breathe. Wheezing and bronchoconstriction can be caused by many problems, including: ??? An infection such as the flu or a cold. ??? Allergies such as hay fever. ??? Diseases such as asthma or chronic obstructive pulmonary disease. ??? Smoking. Treatment for your wheezing depends on what is causing the problem. Your wheezing may get better without treatment. But you may need to pay attention to things that cause your wheezing and avoid them. Or you may need medicine to help treat the wheezing and to reduce the swelling or to relieve spasms in your lungs. Follow-up care is a licona part of your treatment and safety. Be sure to make and go to all appointments, and call your doctor if you are having problems. It is also a good idea to know your test results and keep a list of the medicines you take. How can you care for yourself at home? Take your medicine exactly as prescribed. Call your doctor if you think you are having a problem with your medicine. You will get more details on the specific medicine your doctor prescribes. ??? If your doctor prescribed antibiotics, take them as directed. Do not stop taking them just because you feel better. You need to take the full course of antibiotics. ??? Breathe moist air from a humidifier, hot shower, or sink filled with hot water. This may help ease your symptoms and make it easier for you to breathe. Follow the directions for cleaning the humidifier. ??? If you have congestion in your nose and throat, drinking plenty of fluids, especially hot fluids, may help relieve your symptoms. If you have kidney, heart, or liver disease and have to limit fluids, talk with your doctor before you increase the amount of fluids you drink. ??? If you have mucus in your airways, it may help to breathe deeply and cough. ??? Do not smoke or allow others to smoke around you. Smoking can make your wheezing worse. If you need help quitting, talk to your doctor about stop- smoking programs and medicines. These can increase your chances of quitting for good. ??? Avoid things that may cause your wheezing. These may include colds, smoke, air pollution, dust,pollen, pets, cockroaches, stress, and cold air. When should you call for help? Call 911 anytime you think you may need emergency care. For example, call if: ??? You have severe trouble breathing. ??? You passed out (lost consciousness). Call your doctor now or seek immediate medical care if: ??? You cough up yellow, dark brown, or bloody mucus (sputum). ??? You have new or worse shortness of breath. ??? Your wheezing is not getting better or it gets worse after you start taking your medicine. Watch closely for changes in your health, and be sure to contact your doctor if: ??? You do not get better as expected. Where can you learn more? Go to https://www.[email or web address].[email or web address]/patientEd Enter V454 in the search box to learn more about Wheezing or Bronchoconstriction: Care Instructions. Current as of: October 02, 2022?Content Version: 13.8 ?? [employer]. Care instructions adapted under license by your healthcare professional. If you have questions about a medical condition or this instruction, always ask your healthcare professional. [employer] disclaims any warranty or liability for your use of this information. Physician Emergency department Note * Maryann Mcgowan PA-C: PERFORM, MODIFY, MODIFY, MODIFY Event Display: ED Physician Record Authored Date: ED Physician Record Patient name??YVROSE LEYVA?1960?Gender??Ma le??Location??EMED/[facility]/A Provider Contact Date and Time 03/14/24 14:47 Basic Information Triage Chief Complaint: SOB AND COUGH X 3 WEEKS History / Exam limited by: [Maryann Mcgowan PA-C_] Supervising Physician: [Dr. Mujica_] History of Present Illness Patient is a 63-year-old male with a past medical history of COPD, hyperlipidemia, hypertension??presenting with a??cough and chest tightness x 3 weeks??associated with intermittent shortness of breath. ??He has been in the??[place] area??now for about 4 weeks. ??He is here from [place] to he lp his mother. ??He states while he is been here he has been outside doing a lot of work??in his mom's yard.?? He??reports??that he has been wheezing and coughing. ??His shortness of breath is not exertional nor does he have any chest pain. ??He denies any fever or chills.?? No nasal congestion. ??No sneezing.?? No??abdominal pain. ??No??N/V/D. ??No rash.?? Other than his trip from??[place], he has not traveled recently. ??He denies also any leg pain or swelling. ??He typically uses an inhaler as well as a nebulizer but he??left it in [place]. ??He does have an ipratropium inhalerwhich she has been using but it has not been helping him??much.?? Patient states his history of COPD is?? just a little bit. ??He states he has never seen a??allergy nurse. Review of Systems 10 point review of systems has been conducted and is negative or as as per HPI. Physical Exam Vitals & Measurements Initial Vitals 03/14 13:04 T:36.7(Oral)??HR:83??RR:22??BP:160/87??Pulse Ox:98%??Source:Room Air --- T:----()??HR:86??RR:18??BP:/??Pulse Ox:99%??Source:??---?03/14 13:24 T:36.7(Oral)??HR:83??RR:22??BP:160/87??Pulse Ox:98%??Source:Room Air ---?03/14 13:04 GENERAL: _no acute distress, nontoxic toxic appearing HEAD: _normocephalic EYES/EARS/NOSE/THROAT: _pupils equal, normal pharynx RESPIRATORY: _no respiratory distress, diffuse expiratory wheezing bilaterally CARDIOVASCULAR: _regular rate and rhythm, no murmurs, rubs or gallops,??capillary refill less than 2 seconds ABDOMEN: _soft, non-tender EXTREMITIES: _no swelling, no wounds, no erythema or palpable cords NEUROLOGIC: _alert and oriented x 3, no gross motor or sensory deficits Assessment and Plan Asthma with COPD ED Progress Differential diagnosis for this patient includes but is not limited to??COPD exacerbation,??asthma??exacerbated by seasonal allergy,??pulmonary embolism,??viral bronchitis.?? The patient's??viral nasal swab is negative and his chest x-ray was also??unremarkable as viewed by myself as well as by radi ology.?? His lung exam today did reveal??expiratory wheezing bilaterally. ??This did clear??significantly with??4 puffs of Ventolin inhaler as well as a single DuoNeb treatment.?? I did start the patient today on prednisone??since he does not have??nebulizer here with him. ??Patient does state he??is agreeable to ordering a??nebulizer??from the Internet. ??Therefore I will??prescribe albuterol solution for him.?? He is not due to return to [place] for another few weeks. ??[facility].?? His pulse ox is??stable as are??his other vital signs.?? Therefore safe for discharge at this time. 16:01 - ??03/14/24 - Maryann Mcgowan PA-C Final Impression/Disposition Final Impression:??Asthma with COPD Disposition:??ED Discharge. 03/14/2024 15:52:00 EDT, ED Discharge ?? Followup providers and additional instructions given to patient:?[facility] Adult Medicine Office [phone], 1-2 days, call for an appointment, Patient was given prescriptions for:?? Ventolin HFA 90 mcg/inh inhalation aerosol (albuterol) 1 puff(s), Inhaled, Every 4 hours ??as needed for wheezing. Prescription was printed ? albuterol 2.5 mg/3 mL (0.083%) inhalation solution (albuterol) 2.5 MG, Inhaled, Every 6 hours ??as needed for wheezing. Prescription was printed ? predniSONE 20 mg oral tablet (predniSONE) 60 MG, by mouth, Every day For 4 Days ?.. Prescription was printed ?? [facility] 03/15/2024?? Problem List Ongoing COPD - Chronic obstructive pulmonary disease Hyperlipidemia Hypertension Tobacco use Procedure/Surgical History ???back Home Medications Home No active home medications Allergies contrast media (iodine-based) Social History Tobacco, 03/14/2024 ?Smoking tobacco use: 4 or less cigarettes(less than 1/4 ?pack)/day in last 30 days ? Alcohol, 03/14/2024 ?Alcohol Use: Current. Frequency: 1-2 times per week ? Substance Abuse, 03/14/2024 ?Use: Never ? Immunizations up to date: Adult (03/14/24 13:04:00) Lab Results (within the last 24 hours) COVID, flu, RSV??is negative ? Diagnostic Results Radiology XR Chest PA/Lat??(ordered 03/14/24 12:59) ?? Chest PA and Lat ?? 03/14/24 13:15:56 IMPRESSION: No acute pulmonary disease. Electronically Signed: Maryann Mcgowan PA-C 03/14/2024 16:01
[2024-08-20 03:40] VITALS: BP 128/68; PULSE 60; RESP 16; TEMP 36.7; O2SAT 99
--- NOTE | 2024-08-20 05:14 | ED_ITS ---
HPI - Eye Problem General Chief complaint: Eye Problems Stated complaint: Eye burn/welding Time Seen by Provider: 08/20/24 05:03 Source: patient Mode of arrival: ambulatory Limitations: no limitations History of Present Illness ED Provider: Dr. Soniya Evangelista HPI Narrative: Patient comes to the emergency room complaining of bilateral eye burning sensation. 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 Patient states he well it for about 20 minutes. Patient denies any foreign body sensation in his eyes. Related Data Home Medications ?Medication ?Instructions ?Recorded ?Confirmed aspirin 81 mg tablet,delayed 81 mg PO DAILY 01/17/22 01/04/24 release atorvastatin 40 mg tablet 40 mg PO BEDTIME 01/17/22 01/04/24 chlorthalidone 25 mg tablet 12.5 mg PO QAM 01/17/22 01/04/24 fluticasone propionate 110 2 puff PO BID 01/17/22 01/04/24 mcg/actuation HFA aerosol inhaler (Flovent HFA) ibuprofen 800 mg tablet 800 mg PO TID 01/17/22 01/04/24 lisinopril 30 mg tablet (Zestril) 30 mg PO DAILY 01/17/22 01/04/24 melatonin 5 mg tablet 5 - 10 mg PO BEDTIME PRN insomnia 01/17/22 01/04/24 tiotropium 2.5 mcg-olodaterol 2.5 2 puff inhalation DAILY 01/17/22 01/04/24 mcg/actuation mist for inhalation (Stiolto Respimat) duloxetine 30 mg capsule,delayed 1 cap PO DAILY 05/13/22 01/04/24 release ferrous sulfate 325 mg (65 mg 1 tab PO Q OTHER DAY 05/13/22 01/04/24 iron) tablet (FeroSul) simethicone 125 mg chewable tablet 1 tab PO TID PRN gas 05/13/22 01/04/24 (Gas Relief Extra Strength) cholecalciferol (vitamin D3) 50 50 mcg PO DAILY 09/09/22 01/04/24 mcg (2,000 unit) capsule (Vitamin D3) fluticasone propionate 50 1 spray intranasal BID 09/09/22 01/04/24 mcg/actuation nasal spray,suspension gabapentin 100 mg capsule 100 mg PO TID 09/09/22 01/04/24 pregabalin 50 mg capsule 50 mg PO BID 09/09/22 01/04/24 sennosides 8.6 mg tablet (senna) 17.2 mg PO DAILY 09/09/22 01/04/24 sildenafil 100 mg tablet (Viagra) 50 mg PO DAILY PRN Sexual Activity 09/09/22 01/04/24 Previous Rx's ?Medication ?Instructions ?Recorded erythromycin 5 mg/gram (0.5 %) eye 1 appl ophthalmic (eye) BID #3.5 08/20/24 ointment grams Allergies Allergy/AdvReac Type Severity Reaction Status Date / Time Iodinated Contrast Media Allergy Unknown Verified 08/20/24 00:57 Review of Systems Review of Systems: Constitutional : No Weight loss, No Fever, No Chills, No Night Sweats, No Fatigue, No Malaise ENT/Mouth : No Hearing loss, No Ear Pain, No Nasal Congestion, No Sinus Pain, No Hoarseness, No sore throat, No Rhinorrhea, No Swallowing Difficulty Eyes: Complaining of eye pain bilaterally, erythema, irritation sensation of foreign body sensation Cardiovascular : No Chest Pain, No SOB, No Dyspnea on Exertion, No Orthopnea, No Edema, No Palpitations Respiratory : No Cough, No Sputum, No Wheezing, No Smoke Exposure, No Dyspnea Gastrointestinal : No Nausea, No Vomiting, No Diarrhea, No Constipation, No abdominal Pain, No Hematochezia, No Melena Genitourinary : no irregular bleeding, No Dysuria, No Urinary Frequency, No Hematuria, No Urinary Incontinence, No Urgency, No Flank Pain, No Urinary Flow Changes, No Hesitancy Musculoskeletal : No joint pain, No Myalgias, No Joint Swelling Skin : No Skin Lesions, No rash Neuro : No Weakness, No Numbness, No Paresthesias, No Loss of Consciousness, No Dizziness, No Headache Psych : No Anxiety/Panic, No Depression, No SI/HI/AH/VH, No Social Issues, Heme/Lymph: No Bruising, No Bleeding,No Lymphadenopathy Endocrine : No Polyuria, No Polydipsia, No Temperature Intolerance [facility] Past Medical History Medical History Obstructive sleep apnea (adult) (pediatric) COPD (chronic obstructive pulmonary disease) Surgical History (Updated 01/04/24 @ 13:17 by Lilibeth Rodriguez MD) Hx of surgical procedure (07/31/23) History of back surgery Family History Family History Mother Diabetes Brittle bone disease COPD (chronic obstructive pulmonary disease) High blood pressure Thyroid disease Thyroid cancer Father Lupus High blood pressure Social History Social History Household Members: Spouse Housing: House Are you a primary child care education coordinator to a significant other at home: No Do you presently have visiting nurse or other home services: No Patient Tobacco Use Status: Current everyday Tobacco user Tobacco use type: Cigarette Smoked in Last 30 Days: Yes Use of substances other than those prescribed or required for medical reasons: No Advance Directives: No Advance Directives Information Provided: Yes Do you have a plan to hurt others: No Plan Current occupational status: disabled Physical Exam Vital Signs: Vital Signs: Last Vital Signs Temp 98.1 F 08/20/24 03:40 Pulse 60 08/20/24 03:40 Resp 16 08/20/24 03:40 BP 128/68 08/20/24 03:40 Pulse Ox 99 08/20/24 03:40 O2 Del Method Room Air 08/20/24 03:40 BMI result Body Mass Index 37.0 Const: Other: Appearance: Alert. Oriented X3. No acute distress. Eyes: Pupils equal, round and reactive to light. Bilateral sclera injection, right than left eye have a pressure of 18 and 20 mmHg respectively. Under Wood's lamp, patient does not have obvious ulcers, no corneal abrasions ENT: Pharynx normal. Neck: Normal inspection. Neck supple. No lymph nodes noted. No crepitus CVS: Normal heart rate and rhythm. Pulses normal. Normal S1 and S2 Respiratory: No respiratory distress. Breath sounds normal. No Wheezing. No rales Abdomen: Soft and nontender. No rigidity. No distention. Skin: Skin warm and dry. Normal skin color. Normal skin turgor. Extremities: No lower extremity edema. No Lacerations. No Rash Neuro: Oriented X 3. No motor deficit. No sensory deficit. Moving all extremities. No slurred speech. CN 2 through 12 grossly intact Psych: calm, cooperative, normal affect Medical Decision Making Medical Decision Making MDM Narrative: This with the patient that he has photokeratitis from welding -patient was given IM Toradol, patient will need erythromycin ointment Discharge Plan Discharge Clinical Impression: Welders' keratitis of both eyes Patient Disposition: Home, Self-Care Instructions: Corneal Flash Haskins (ED) Additional Instructions: Please follow-up with your primary care physician tomorrow. If you have any worsening or new symptoms, please return to the emergency room or call 911 Prescriptions: New erythromycin 5 mg/gram (0.5 %) ointment 1 appl ophthalmic (eye) BID Qty: 3.5 0RF No Action ferrous sulfate [FeroSul] 325 mg (65 mg iron) tablet 1 tab PO Q OTHER DAY simethicone [Gas Relief Extra Strength] 125 mg tablet,chewable 1 tab PO TID PRN (Reason: gas) duloxetine 30 mg capsule,delayed release(DR/EC) 1 cap PO DAILY lisinopril [Zestril] 30 mg tablet 30 mg PO DAILY ibuprofen 800 mg tablet 800 mg PO TID chlorthalidone 25 mg tablet 12.5 mg PO QAM Stiolto Respimat 2.5-2.5 mcg/actuation mist 2 puff inhalation DAILY Flovent HFA 110 mcg/actuation HFA aerosol inhaler 2 puff PO BID melatonin 5 mg tablet 5 - 10 mg PO BEDTIME PRN (Reason: insomnia) aspirin 81 mg tablet,delayed release (DR/EC) 81 mg PO DAILY atorvastatin 40 mg tablet 40 mg PO BEDTIME sennosides [senna] 8.6 mg tablet 17.2 mg PO DAILY cholecalciferol (vitamin D3) [Vitamin D3] 50 mcg (2,000 unit) capsule 50 mcg PO DAILY sildenafil [Viagra] 100 mg tablet 50 mg PO DAILY PRN (Reason: Sexual Activity) fluticasone propionate 50 mcg/actuation spray,suspension 1 spray intranasal BID gabapentin 100 mg capsule 100 mg PO TID pregabalin 50 mg capsule 50 mg PO BID Stand Alone Forms: Work/School Release Print Language: Swazi
[2024-08-20] MEDS: Ketorolac Tromethamine 60 MG/2 ML VIAL IM (05:27)
[2024-08-20 05:36] VITALS: BP 125/70; PULSE 87; RESP 20; TEMP 36.9; O2SAT 98
== END 2024-08-20 05:38 | disposition home or self-care (01) ==
PROVIDERS: Emergency Provider Emergency Medicine; PCP Nurse Practitioner Family
DX: H16.133 Photokeratitis, bilateral (principal); H57.13 Ocular pain, bilateral
CPT/HCPCS: 96372; 99284; J1885

== ENCOUNTER 2024-10-22 13:30 | Outpatient (AMB) | payer MEDICARE, MEDICAID, SELFPAY ==
[2024-10-22 13:51] VITALS: BMI 37.0
--- NOTE | 2024-10-22 13:51 | MHC.OFFVIS ---
Vital Signs 10/22/24 13:51 Height 5 ft 8 in Weight 243 lb 9 oz BMI 37.0 Intake Visit Reasons: Right knee pain and giving way Intake Note: Errol is a 64 year old male who presents with complaints of progressively worsening right knee pain and giving way. The patient describes his pain as sharp in nature. He 1st injured his knee several years ago. He twisted his knee and had acute onset of pain. Approximately 6 months ago he re-injured his knee. He states that his right knee will give out several times per day. He has failed the last 6 weeks of conservative treatment which has included physical therapy, Tylenol and anti-inflammatory medicines. He denies any numbness or tingling in either of his lower extremities. Accompanied by: Significant Other Allergies Iodinated Contrast Media Allergy (Verified 10/22/24 13:51) Unknown Medication List - Last Reconciled 10/22/24 by Cruzito Bonds MD aspirin 81 mg PO DAILY atorvastatin 40 mg PO BEDTIME chlorthalidone 12.5 mg PO QAM cholecalciferol (vitamin D3) (Vitamin D3) 50 mcg PO DAILY duloxetine 1 cap PO DAILY erythromycin 1 appl ophthalmic (eye) BID ferrous sulfate (FeroSul) 1 tab PO Q OTHER DAY fluticasone propionate 110 mcg/actuation (Flovent HFA) 2 puffs PO BID fluticasone propionate 50 mcg/actuation 1 spray intranasal BID gabapentin 100 mg PO TID ibuprofen 800 mg PO TID lisinopril (Zestril) 30 mg PO DAILY melatonin 5 - 10 mg PO BEDTIME PRN pregabalin 50 mg PO BID sennosides (senna) 17.2 mg PO DAILY sildenafil (Viagra) 50 mg PO DAILY PRN simethicone (Gas Relief Extra Strength) 1 tab PO TID PRN tiotropium-olodaterol 2.5-2.5 mcg/actuation (Stiolto Respimat) 2 puffs inhalation DAILY [facility] Medical History Obstructive sleep apnea (adult) (pediatric) COPD (chronic obstructive pulmonary disease) Surgical History (Updated 01/04/24 @ 13:17 by Lilibeth Rodriguez MD) Hx of surgical procedure (07/31/23) History of back surgery Family History Mother Diabetes Brittle bone disease COPD (chronic obstructive pulmonary disease) High blood pressure Thyroid disease Thyroid cancer Father Lupus High blood pressure Social History Household Members: Spouse Housing: House Are you a primary rn intensive care unit to a significant other at home: No Do you presently have visiting nurse or other home services: No Patient Tobacco Use Status: Current everyday Tobacco user Tobacco use type: Cigarette Current occupational status: disabled Physical Exam Vital Signs: BMI result Body Mass Index 37.0 Const Other: Well-nourished well-developed very friendly male awake alert and oriented x3 in no acute distress Extrem Other: Bilateral lower extremity examination shows good capillary refill, no skin lesions noted, normal sensation light touch Right knee examination shows a minimal effusion, minimal crepitus with range of motion, tenderness along his medial joint line, positive Mayra's test, no instability Results Reviewed Results Reviewed: Standing full weight-bearing x-rays of the patient's right knee show mild diffuse joint space narrowing, no acute bony abnormalities Assessment & Plan Assessment & Plan (1) Tear of medial meniscus of right knee: Code(s): S83.241A - Other tear of medial meniscus, current injury, right knee, initial encounter Category: Medical Plan Mr. Garcia presents with progressively worsening right knee pain and mechanical symptoms most likely due to a tear of his medial meniscus. I will send the patient for an MRI of his right knee for further evaluation. I will see him back once the MRI is completed to discuss the findings and treatment options. Feel free to call me at any time should questions regarding his orthopedic management arise. Thank you very much for asking me to see this very friendly gentleman. I spent 21 minutes in reviewing the patient's records and imaging studies, seeing the patient and documenting in the medical record. Orders: Orders MR knee RT wo con 10/22/24 S83.241A - Other tear of medial meniscus, current injury, right knee, initial encounter Coding Level of Care Code New Pt Level 3 (11088) Complex EM visit Add On G2211 Diagnoses Tear of medial meniscus of right knee S83.241A
== END 2024-10-22 14:16 | disposition home or self-care (01) ==
PROVIDERS: PCP Nurse Practitioner Family; Visit Provider Orthopaedic Surgery
DX: S83.241A Other tear of medial meniscus, current injury, right knee, initial encounter (principal)
CPT/HCPCS: 99203; G2211

== ENCOUNTER → 2024-10-22 13:30 | Outpatient (BNVA) | payer MEDICARE, MEDICAID, SELFPAY | PROVIDERS: PCP Nurse Practitioner Family; Visit Provider Orthopaedic Surgery | DX: S83.241A Other tear of medial meniscus, current injury, right knee, initial encounter (principal); X58.XXXA Exposure to other specified factors, initial encounter; Y93.9 Activity, unspecified; Y92.9 Unspecified place or not applicable; Y99.9 Unspecified external cause status | CPT/HCPCS: 99202 ==

== ENCOUNTER 2024-11-03 16:32 | Outpatient (REF) | payer MEDICARE, MEDICAID, SELFPAY ==
--- NOTE | ~2024-11-03 | MR_ITS ---
EXAMINATION: MR RIGHT KNEE WITHOUT CONTRAST CLINICAL INFORMATION: Other tear of medial meniscus, current injury, right knee, initial encounter S83.241A. COMPARISON: XR Right knee 12/18/2023. TECHNIQUE: MRI of the right knee without contrast was performed using routine sequences on a high-field scanner. FINDINGS: MENISCI: Medial Meniscus: Oblique undersurface and inner margin tear of the posterior horn. A small fragment of the inner margin is displaced toward the meniscal root. The oblique undersurface tear extends medially to the junction with the meniscal body. Lateral Meniscus: Intact. LIGAMENTS: Cruciate: Intact. Collateral: Intact. EXTENSOR MECHANISM: Prepatellar subcutaneous edema. ARTICULAR CARTILAGE/BONE: Patellofemoral Compartment: Minimal cartilage fissuring of the central patella. Soft tissue edema between the proximal patellar tendon and the lateral trochlea may indicate chronic patellofemoral malalignment/friction or fat pad impingement. Medial Compartment: Mild cartilage thinning with areas of surface irregularity along the weightbearing aspect. Lateral Compartment: Normal. JOINT FLUID AND BURSAE: Trace joint effusion. A small ganglion projects through the lateral gastrocnemius origin. MR/MR knee RT wo con IMPRESSION: Complex tear of the posterior horn of the medial meniscus as described. Minimal medial and patellofemoral compartment osteoarthritis with a trace joint effusion. Electronically signed by: Topher Llamas MD 11/07/2024 03:23 PM [facility]IN[facility] KING
== END 2024-11-03 16:33 | disposition home or self-care (01) ==
LOC: HO.MRI 16:32
PROVIDERS: Visit Provider Orthopaedic Surgery
DX: S83.241A Other tear of medial meniscus, current injury, right knee, initial encounter (principal)
CPT/HCPCS: 73721

== ENCOUNTER 2024-11-18 11:54 | Outpatient (REF) | payer MEDICARE, MEDICAID, SELFPAY ==
[2024-11-18 13:10] LABS: MANUAL DIFF FLAG NO
[2024-11-18 13:21] LABS: Basophils Absolute Auto 0.1 X10*3/uL (0.0-0.2); Basophils Percent Auto 0.7 % (0-2); Eosinophils Absolute Auto 0.4 X10*3/uL (0.0-0.4); Eosinophils Percent Auto 3.6 % (0-4); Hematocrit 41.6 % (42.0-52.0); Hemoglobin 13.1 g/dl (14.0-18.0); Imm Gran Abs Auto 0.03 X10*3/uL (0.00-0.03); Imm Gran Pct Auto 0.3 % (0.0-0.4); Lymphocytes Percent Auto 29.3 % (20-40); Mean Corpuscular HGB Conc 31.5 g/dl (31.0-36.0); Mean Corpuscular Hemoglobin 23.4 pg (27.0-33.0); Mean Corpuscular Volume 74.3 fL (80.0-98.0); Mean Platelet Volume 9.7 fL (9.4-12.4); Monocytes Absolute Auto 0.8 X10*3/uL (0.1-1.2); Monocytes Percent Auto 7.3 % (2-11); Neutrophils Absolute Auto 6.1 x10*3/uL (2.0-8.3); Neutrophils Percent Auto 58.8 % (45-73); Platelet Count 392 X10*3/uL (160-400); Red Cell Distribution Width 16.1 % (11.0-16.0); White Blood Count 10.4 X10*3/uL (4.8-10.8)
[2024-11-18 13:37] LABS: Estimated Average Glucose 120 mg/dL; Hemoglobin A1C 134.1451 umol/L; Hemoglobin A1c % 5.8 % (<6.0); Total Hemoglobin (HGBA1C) 3338.3098 umol/L
[2024-11-18 13:45] LABS: Alanine Aminotransferase 36 U/L (0-40); Albumin Level 4.1 g/dL (3.5-5.0); Alkaline Phosphatase 96 U/L (39-117); Anion Gap 10 (12-20); Aspartate Amino Transferase 27 U/L (5-37); Bilirubin Direct 0.3 mg/dL (0.0-0.5); Bilirubin Total 0.7 mg/dL (0.0-1.0); Blood Urea Nitrogen 13 mg/dL (9-16); Calcium 9.9 mg/dL (8.4-10.2); Carbon Dioxide 26 mmol/L (22-29); Chloride 103 mmol/L (96-108); Cholesterol 119 mg/dL (<200); Estimated Glomerular Filt Rate > 60; Glucose Random 99 mg/dL (60-115); HDL Cholesterol 38 mg/dL (>40); Iron 107 mcg/dL (45-160); LDL Cholesterol Calculated 69 mg/dL (<100); Percent Iron Saturation 39 % (15-50); Potassium 3.9 mmol/L (3.3-5.1); Sodium 135 mmol/L (135-145); Total Iron Binding Capacity 272 mcg/dL (228-428); Total Protein 7.4 g/dL (6.5-8.0); Triglycerides 61 mg/dL (<150); Unsaturated Iron Binding 165 ug/dL
[2024-11-18 13:55] LABS: Prostate Specific Antigen 0.54 ng/mL (<0.05-4.0)
[2024-11-18 13:57] LABS: HIV AB/AG Nonreactive (Nonreactive); HIV Num 1 0.07 S/CO (0.00-0.99); ~HepC Num1 0.11 S/CO (0.00-0.79); ~Hepatitis C Antibody Nonreactive (Nonreactive)
[2024-11-18 14:04] LABS: Creatinine Urine 149.41 mg/dL; Microalbum/Creatinine Ratio Ur 4.6 ug/mg cr (<30)
[2024-11-18 14:07] LABS: Ferritin 275 ng/mL (20-250)
== END 2024-11-18 11:55 | disposition home or self-care (01) ==
LOC: HO.HHCL 11:54
PROVIDERS: Visit Provider Nurse Practitioner
DX: I10 Essential (primary) hypertension (principal); Z13.9 Encounter for screening, unspecified; R10.12 Left upper quadrant pain; D64.9 Anemia, unspecified; Z12.5 Encounter for screening for malignant neoplasm of prostate; S83.241A Other tear of medial meniscus, current injury, right knee, initial encounter; Z13.1 Encounter for screening for diabetes mellitus
CPT/HCPCS: 36415; 80048; 80061; 80076; 82043; 82570; 82728; 83036; 83540; 84153; 85025; 86803; 87389; 99212

== ENCOUNTER 2024-11-18 13:15 | Outpatient (AMB) | payer MEDICARE, MEDICAID, SELFPAY ==
--- NOTE | 2024-11-18 13:34 | A.OFFVIS_ITS ---
Intake Visit Reasons: OV- Right Knee MRI Review Intake Note: Errol is a 64 year old male who presents with complaints of progressively worsening right knee pain and giving way. The patient describes his pain as sharp in nature. He 1st injured his knee several years ago. He twisted his knee and had acute onset of pain. Approximately 6 months ago he re-injured his knee. He states that his right knee will give out several times per day. He has failed the last 6 weeks of conservative treatment which has included physical therapy, Tylenol and anti-inflammatory medicines. He denies any numbness or tingling in either of his lower extremities. Allergies Iodinated Contrast Media Allergy (Verified 11/18/24 13:34) Unknown Medication List - Last Reconciled 11/18/24 by Cruzito Bonds MD aspirin 81 mg PO DAILY atorvastatin 40 mg PO BEDTIME chlorthalidone 12.5 mg PO QAM cholecalciferol (vitamin D3) (Vitamin D3) 50 mcg PO DAILY duloxetine 1 cap PO DAILY erythromycin 1 appl ophthalmic (eye) BID ferrous sulfate (FeroSul) 1 tab PO Q OTHER DAY fluticasone propionate 110 mcg/actuation (Flovent HFA) 2 puffs PO BID fluticasone propionate 50 mcg/actuation 1 spray intranasal BID gabapentin 100 mg PO TID ibuprofen 800 mg PO TID lisinopril (Zestril) 30 mg PO DAILY melatonin 5 - 10 mg PO BEDTIME PRN pregabalin 50 mg PO BID sennosides (senna) 17.2 mg PO DAILY sildenafil (Viagra) 50 mg PO DAILY PRN simethicone (Gas Relief Extra Strength) 1 tab PO TID PRN tiotropium-olodaterol 2.5-2.5 mcg/actuation (Stiolto Respimat) 2 puffs inhalation DAILY [facility] Medical History Obstructive sleep apnea (adult) (pediatric) COPD (chronic obstructive pulmonary disease) Surgical History Hx of surgical procedure (07/31/23) History of back surgery Family History Mother Diabetes Brittle bone disease COPD (chronic obstructive pulmonary disease) High blood pressure Thyroid disease Thyroid cancer Father Lupus High blood pressure Social History Household Members: Spouse Housing: House Are you a primary career based intervention coordinator to a significant other at home: No Do you presently have visiting nurse or other home services: No Patient Tobacco Use Status: Current everyday Tobacco user Tobacco use type: Cigarette Current occupational status: disabled Physical Exam Const Other: Well-nourished well-developed very friendly male awake alert and oriented x3 in no acute distress Extrem Other: Bilateral lower extremity examination shows good capillary refill, no skin lesions noted, normal sensation light touch Right knee examination shows a minimal effusion, minimal crepitus with range of motion, tenderness along his medial joint line, positive Mayra's test, no instability Results Reviewed Results Reviewed: MRI of the patient's right knee shows mild diffuse degenerative changes as well as a tear of the medial meniscus Assessment & Plan Assessment & Plan (1) Tear of medial meniscus of right knee: Code(s): S83.241A - Other tear of medial meniscus, current injury, right knee, initial encounter Category: Medical Plan Mr. Garcia presents with right knee pain and mechanical symptoms due to a medial meniscus tear. I had a lengthy discussion with the patient regarding the treatment options. At this time the patient's symptoms are tolerable to him. He will continue with his activity modifications. If his symptoms worsen we will further discuss the risks and benefits of right knee arthroscopic surgery. That surgery would involve right knee arthroscopic partial medial meniscectomy. Feel free to call me at any time should questions regarding his orthopedic management arise. I spent 20 minutes in reviewing the patient's records and imaging studies, seeing the patient and documenting in the medical record. Coding Level of Care Code Est Pt Level 3 (91906) Complex EM visit Add On G2211 Diagnoses Tear of medial meniscus of right knee S83.241A
== END 2024-11-18 13:48 | disposition home or self-care (01) ==
PROVIDERS: PCP Nurse Practitioner Family; Visit Provider Orthopaedic Surgery
DX: S83.241A Other tear of medial meniscus, current injury, right knee, initial encounter (principal)
CPT/HCPCS: 99213; G2211

== ENCOUNTER 2025-04-11 14:53 | Outpatient (AMB) | payer MEDICARE, MEDICAID, SELFPAY ==
[2025-04-11 14:54] VITALS: BP 131/60; PULSE 69; O2SAT 100; BMI 38.3
--- NOTE | 2025-04-11 14:54 | MHC.OFFVIS ---
Vital Signs 04/11/25 14:54 Height 5 ft 8 in Weight 251 lb 12.286 oz BMI 38.3 BP 131/60 Blood Pressure Location Rt brachial Position Sitting Pulse 69 Pulse Source Pulse Oximeter Pulse Oximetry (%) 100 Oxygen Delivery Method Room Air Intake Visit Reasons: Follow up CIC Intake Note: Patient follow up for CIC, mary was 09/09/2022. Patient cc: Patient complains of gas and right flank pain. Patient states his pain usually resolves after bowel movement. Allergies Iodinated Contrast Media Allergy (Verified 04/11/25 14:56) Unknown HPI HPI Follow up [facility]: Details: Pt not seen since 2021 here for repeat colonoscopy. Assessment & Plan (1) Tubular adenoma of colon: Comment: 2021= large TA repeat 5 years Code(s): D12.6 - Benign neoplasm of colon, unspecified Plan: The procedure should be repeated in 3 years due to the size of the tubular adenoma. he tolerated the procedure well. She he is quite agreeable to the 3 year follow-up and is bowels of recovered well after the procedure. He has no complaints with our service. (2) Chronic idiopathic constipation: Code(s): K59.04 - Chronic idiopathic constipation TODAYS VISIT Patient has not been seen by this practice since 2021. He has some gas and I suggest an OTC Gas X supplement. He only suffers CIC when he returns here form [place] but it eventually adjusts. Apparently he has a house in [place] and he will be leaving in June. I told him I can not guarantee getting the procedure by then but will try putting in a request. He may be open to being on a cancellation list. He denies any new medical problems or changes to his medical history since the last visit. He denies prior problems with anesthesia or sedation. No other ID problems.? He is treated for his positive PPD with INH therapy and has had yearly chest x-rays that are negative. Kaylee COPD is well controlled and he uses CPAP at home for his GENE, he denies cardiac problems. There is no known FHX of crc or polyps. [facility] Medical History (Updated 04/11/25 @ 15:19 by MIESHA Hughes) History of positive PPD Colon cancer screening Obstructive sleep apnea (adult) (pediatric) COPD (chronic obstructive pulmonary disease) Surgical History Hx of surgical procedure (07/31/23) History of back surgery Family History Mother Diabetes Brittle bone disease COPD (chronic obstructive pulmonary disease) High blood pressure Thyroid disease Thyroid cancer Father Lupus High blood pressure Social History Household Members: Spouse Housing: House Are you a primary patient care representative to a significant other at home: No Do you presently have visiting nurse or other home services: No Patient Tobacco Use Status: Current everyday Tobacco user Tobacco use type: Cigarette Current occupational status: disabled Review of Systems Const Denies fatigue, Denies fever(s), Denies night sweats, Denies poor appetite and Denies weight loss ENT Reports Normal hearing present, Denies dental pain, Denies dysphagia, Denies hearing loss, Denies mouth pain, Denies odynophagia, Denies throat swelling, Denies tongue swelling and Reports other (Dentition adequate) Card Reports no additional complaints Resp Reports no additional complaints GI Details: Denies abdominal pain, Denies melena, Denies bloating, Denies hematochezia, Reports constipation, Denies GI cramping, Denies dysphagia, Reports excessive flatus, Denies early satiety, Denies heartburn, Denies diarrhea, Denies nausea, Denies odynophagia, Denies vomiting and Denies hematemesis Skin/Breast Denies pruritus, Denies lesions, Denies rash and Denies jaundice Neuro Reports Normal hearing present and Denies Abnormal speech present Endo Denies fatigue Aller/Immun Denies throat swelling and Denies tongue swelling Physical Exam Vital Signs: Last Vital Signs Pulse 69 04/11/25 14:54 BP 131/60 04/11/25 14:54 Pulse Ox 100 04/11/25 14:54 Oxygen Delivery Method Room Air 04/11/25 14:54 BMI result Body Mass Index 38.3 Const General: cooperative, no acute distress, well developed and well groomed Nutritional Appearance: well nourished and obese morbidly obese Orientation/consciousness: oriented to person, oriented to place and oriented to time Limitations: No language barrier HEENT Head: Yes normocephalic and Yes atraumatic Eyes General: appearance normal, both eyes and all related structures Pupils: Equal, round and reactive pupils present Neck Neck: Yes normal visual inspection and Yes no lymphadenopathy Thyroid: Thyroid normal Resp Effort & Inspection: normal respiratory effort and able to speak in complete sentences Auscultation: clear to auscultation bilaterally Cardio Rate: regular rate Rhythm: regular rhythm Heart sounds: Normal, physiologic split S2 sound present Peripheral pulses: radial pulses present and posterior tibial pulses present GI Inspection: No distended, Yes Abdominal panniculus present and Yes obesity Palpation (GI): Soft to palpation, nontender, no guarding, not rigid and No hepatosplenomegaly present Percussion: Yes normal to percussion Auscultation: normal bowel sounds Rectal Exam - Male: Yes deferred Skin General skin exam: no rashes or lesions noted, turgor normal, skin not dry, no jaundice, No spider nevi and no striae Rashes: no rashes Nails: normal Neuro General: oriented to person, oriented to place and oriented to time Cranial nerves: Yes Equal, round and reactive pupils present and Yes Normal hearing present Speech: No Abnormal speech present Extrem General: Yes normal to inspection, No clubbing, No cyanosis and No edema Psych Appearance: grossly normal and well kempt Mental Status: mental status grossly normal Speech and movement: Normal speech and movement present Affect: normal affect Attitude: cooperative Thought process: Normal thought process present and not confabulating Thought content: Normal thought content present Insight: Good insight present (Psych) Judgement: Good judgement present (Psych) Assessment & Plan Assessment & Plan (1) Tubular adenoma of colon: Comment: 2021= large TA repeat 5 years Code(s): D12.6 - Benign neoplasm of colon, unspecified Category: Medical (2) Pre-op examination: Code(s): Z01.818 - Encounter for other preprocedural examination Category: Medical (3) Obstructive sleep apnea (adult) (pediatric): Code(s): G47.33 - Obstructive sleep apnea (adult) (pediatric) Category: Medical (4) Morbid obesity: Code(s): E66.01 - Morbid (severe) obesity due to excess calories Category: Medical (5) Smoker: Code(s): F17.200 - Nicotine dependence, unspecified, uncomplicated Category: Medical (6) COPD (chronic obstructive pulmonary disease): Code(s): J44.9 - Chronic obstructive pulmonary disease, unspecified Category: Medical Plan Patient has not been seen by this practice since 2021. He has some gas and I suggest an OTC Gas X supplement. He only suffers CIC when he returns here form [place] but it eventually adjusts. Apparently he has a house in [place] and he will be leaving in June. I told him I can not guarantee getting the procedure by then but will try putting in a request. He may be open to being on a cancellation list. He denies any new medical problems or changes to his medical history since the last visit. He denies prior problems with anesthesia or sedation. No other ID problems.? He is treated for his positive PPD with INH therapy and has had yearly chest x-rays that are negative. Kaylee COPD is well controlled and he uses CPAP at home for his GENE, he denies cardiac problems. There is no known FHX of crc or polyps. Orders: Orders Comprehensive Met. Panel Today D12.6 - Benign neoplasm of colon, unspecified, E66.01 - Morbid (severe) obesity due to excess calories, F17.200 - Nicotine dependence, unspecified, uncomplicated, G47.33 - Obstructive sleep apnea (adult) (pediatric), J44.9 - Chronic obstructive pulmonary disease, unspecified, Z01.818 - Encounter for other preprocedural examination Colonoscopy - GI Use Only Today D12.6 - Benign neoplasm of colon, unspecified, E66.01 - Morbid (severe) obesity due to excess calories, F17.200 - Nicotine dependence, unspecified, uncomplicated, G47.33 - Obstructive sleep apnea (adult) (pediatric), J44.9 - Chronic obstructive pulmonary disease, unspecified, Z01.818 - Encounter for other preprocedural examination Complete Blood Count Auto Diff Today D12.6 - Benign neoplasm of colon, unspecified, E66.01 - Morbid (severe) obesity due to excess calories, F17.200 - Nicotine dependence, unspecified, uncomplicated, G47.33 - Obstructive sleep apnea (adult) (pediatric), J44.9 - Chronic obstructive pulmonary disease, unspecified, Z01.818 - Encounter for other preprocedural examination Medications: New peg 3350-electrolytes 236-22.74-6.74 -5.86 gram (Golytely) until fecal effluent is clear; do not exceed a total volume of 2,000 mL 240 mL PO Q10M 4,000 mL 0RF 1 day Z12.11 - Encounter for screening for malignant neoplasm of colon bisacodyl (Dulcolax (bisacodyl)) 10 mg (2 x 5 mg) PO BEDTIME 4 tabs 0RF 2 days Coding Level of Care Code New Pt Level 3 (53271) Diagnoses Tubular adenoma of colon D12.6 Pre-op examination Z01.818 Obstructive sleep apnea (adult) (pediatric) G47.33 Morbid obesity E66.01 Smoker F17.200 COPD (chronic obstructive pulmonary disease) J44.9
== END 2025-04-11 15:25 | disposition home or self-care (01) ==
LOC: HO.HGI 14:54
PROVIDERS: PCP Nurse Practitioner Family; Visit Provider Nurse Practitioner
DX: K59.04 Chronic idiopathic constipation (principal); Z12.11 Encounter for screening for malignant neoplasm of colon; Z86.0100 Personal history of colon polyps, unspecified; G47.33 Obstructive sleep apnea (adult) (pediatric); E66.01 Morbid (severe) obesity due to excess calories; F17.200 Nicotine dependence, unspecified, uncomplicated; J44.9 Chronic obstructive pulmonary disease, unspecified
CPT/HCPCS: 99213

== ENCOUNTER 2025-04-11 15:32 | Outpatient (REF) | payer MEDICARE, MEDICAID, SELFPAY ==
--- OUTSIDE RECORDS SUMMARY | 2025-04-11 15:37 | XMS_ITS | Encounter Summary ---
Author Organization [employer] Address [address] [place] [address] [address] [place] [address] Care Team Providers Care Tile Layer Drainage Name Role Phone Marlena Yost DIAGNOSTIC TECHNOLOGIST Primary Care Provider [phone] Demian Jameson AGNP Primary Care Provider Unavail Sabrina Capellan DIAGNOSTIC TECHNOLOGIST Primary Care Provider [phone] Sabrina Haro DIAGNOSTIC TECHNOLOGIST Primary Care Provider [phone] Ania Gagnon NP Primary Care Provider [phone] Kelly Rodriguez NP Primary Care Provider [phone] Reason for Visit * Reason Comments Med Refill Encounter Details Date Type Department Care Team (Late st Contact Info) Description 04/18/2023 Refill [facility] [address] [place], [place] [phone] Isa Hope FNP [address], [place] [phone] Social History Tobacco Use Types Packs/Day Years Used Date Smoking Tobacco: Never Assessed Sex and Gender Information Value Date Recorded Sex Assigned at Male 09/19/2022 10:18 AM EDT Legal Sex Male 10:18 AM EDT Gender Identity Male 09/19/2022 10:18 AM EDT Sexual Orientation Choose not to disclose 2021 10:18 AM EDT documented as of this encounter Plan of Treatment Upcoming Encounters Date Type Department Care Team (Late st Contact Info) Description 04/18/2025 11:00 AM EDT Office Visit [facility] [address], [place] [phone] Kelly Rodriguez NP [address] [place] [address] documented as of this encounter Visit Diagnoses Not on filedocumented in this encounter Care Teams Tile Layer Drainage Relationship Specialty Start Date End Date Marlena Yost FNP PCP - General Family Medicine 07/17/22 05/28/23 Demian Jameson AGNP PCP - General Family Medicine 05/29/23 07/09/23 Sabrina Haro FNP [address] [place] [id number] PCP - General Family Medicine 07/10/23 05/15/24 Sabrina Haro FNP [address] [place] [id number] PCP - General Family Medicine 05/16/24 07/22/24 Ania Gagnon NP [address] [place] [id number] PCP - General Family Medicine 07/23/24 09/08/24 Kelly Rodriguez NP [address] [place] [id number] PCP - General Family Medicine 09/09/24 documented as of this encounter
[2025-04-11 15:49] LABS: MANUAL DIFF FLAG NO
[2025-04-11 16:08] LABS: Basophils Absolute Auto 0.1 X10*3/uL (0.0-0.2); Basophils Percent Auto 0.8 % (0-2); Eosinophils Absolute Auto 0.5 X10*3/uL (0.0-0.4); Eosinophils Percent Auto 4.8 % (0-4); Hematocrit 43.2 % (42.0-52.0); Hemoglobin 13.7 g/dl (14.0-18.0); Imm Gran Abs Auto 0.09 X10*3/uL (0.00-0.03); Imm Gran Pct Auto 0.9 % (0.0-0.4); Lymphocytes Absolute Auto 2.9 X10*3/uL (1.2-4.9); Lymphocytes Percent Auto 28.3 % (20-40); Mean Corpuscular HGB Conc 31.7 g/dl (31.0-36.0); Mean Corpuscular Hemoglobin 23.8 pg (27.0-33.0); Mean Corpuscular Volume 75.1 fL (80.0-98.0); Monocytes Absolute Auto 0.8 X10*3/uL (0.1-1.2); Monocytes Percent Auto 7.3 % (2-11); Neutrophils Percent Auto 57.9 % (45-73); Platelet Count 358 X10*3/uL (160-400); Red Blood Count 5.75 X10*6/uL (4.60-5.80); Red Cell Distribution Width 17.9 % (11.0-16.0); White Blood Count 10.4 X10*3/uL (4.8-10.8)
[2025-04-11 16:40] LABS: Alanine Aminotransferase 21 U/L (0-40); Albumin Level 4.2 g/dL (3.5-5.0); Alkaline Phosphatase 102 U/L (39-117); Anion Gap 12 (12-20); Aspartate Amino Transferase 14 U/L (5-37); Bilirubin Total 0.6 mg/dL (0.0-1.0); Blood Urea Nitrogen 11 mg/dL (9-16); Calcium 9.6 mg/dL (8.4-10.2); Carbon Dioxide 28 mmol/L (22-29); Chloride 104 mmol/L (96-108); Estimated Glomerular Filt Rate > 60; Glucose Random 73 mg/dL (60-115); Potassium 4.3 mmol/L (3.3-5.1); Sodium 140 mmol/L (135-145); Total Protein 7.4 g/dL (6.5-8.0)
== END 2025-04-11 15:33 | disposition home or self-care (01) ==
LOC: HO.CT 15:32
PROVIDERS: Absent Provider Nurse Practitioner; PCP Nurse Practitioner Family; Visit Provider Emergency Medicine
DX: Z01.818 Encounter for other preprocedural examination (principal); D12.6 Benign neoplasm of colon, unspecified; E66.01 Morbid (severe) obesity due to excess calories; Z68.38 Body mass index [BMI] 38.0-38.9, adult; G47.33 Obstructive sleep apnea (adult) (pediatric); J44.9 Chronic obstructive pulmonary disease, unspecified; F17.200 Nicotine dependence, unspecified, uncomplicated; Z71.3 Dietary counseling and surveillance
CPT/HCPCS: 36415; 80053; 85025; 99212

== ENCOUNTER 2025-06-12 14:50 | Outpatient (AMB) | payer MEDICARE, MEDICAID, SELFPAY ==
--- NOTE | 2025-06-12 14:55 | A.OFFVIS_ITS ---
Vital Signs 06/12/25 15:06 Height 5 ft 8 in Weight 251 lb BMI 38.2 Intake Visit Reasons: OV-Right knee pain Intake Note: Errol is a 64 year old male who presents today for a follow up of his right knee pain. Patient reports pain is primarily on the lateral aspect of the knee. He has tried taking Tylenol, Ibuprofen, Bengay with some relief. He reports his symptoms have improved since he last saw Dr. Bonds 11/18/24. He would like to discuss cortisone injections as he has never had them. Allergies Iodinated Contrast Media Allergy (Verified 06/12/25 14:55) Unknown HPI HPI OV-Right knee pain: Details: Mr. Garcia is a 64-year-old male who presents to the office today for right knee pain. Patient was previously seen and treated by Dr. Bonds for right knee pain. An MRI was ordered and was significant for a medial meniscal tear. Dr. Bonds had recommended a knee arthroscopy at that time. However, the patient is reporting that the pain is located along the lateral aspect of the joint line. He is looking for additional conservative treatment at this time. He is considering a cortisone injection to the right knee. [facility] Medical History (Updated 06/13/25 @ 08:46 by Jerrica Grider PA-C) History of positive PPD Colon cancer screening Obstructive sleep apnea (adult) (pediatric) COPD (chronic obstructive pulmonary disease) Surgical History Hx of surgical procedure (07/31/23) History of back surgery Family History Mother Diabetes Brittle bone disease COPD (chronic obstructive pulmonary disease) High blood pressure Thyroid disease Thyroid cancer Father Lupus High blood pressure Social History Household Members: Spouse Housing: House Are you a primary school childcare attendant to a significant other at home: No Do you presently have visiting nurse or other home services: No Patient Tobacco Use Status: Current everyday Tobacco user Tobacco use type: Cigarette Current occupational status: disabled Review of Systems Const All systems reviewed & are unremarkable except as noted in HPI and below Physical Exam Vital Signs: BMI result Body Mass Index 38.2 Const General: cooperative, healthy appearing and no acute distress Resp Effort & Inspection: normal respiratory effort and able to speak in complete sentences Extrem Other: Right knee normal to inspection. No ecchymosis, erythema or joint effusion. Tenderness to palpation along the lateral joint line. Range of motion is 0-100 degrees. NVI. Office Procedures AMB Joint Injection/Aspiration Joint Injection/Aspiration Primary Site: right knee Injected: 80 mg of, DepoMedrol, with 8 mL of (2% plain lido) and in the joint Approach Used: anterolateral Procedure: The patient tolerated the procedure well, but had some pain with the injection and there was some relief with the local anesthesia Coding - Large joint Procedure code (CPT) selection complete Assessment & Plan Assessment & Plan (1) Internal derangement of right knee: Code(s): M23.91 - Unspecified internal derangement of right knee Category: Medical Plan Mr. Garcia is a 64-year-old male who presents to the office today for right knee pain. Patient was previously seen and treated by Dr. Bonds for right knee pain. An MRI was ordered and was significant for a medial meniscal tear. Dr. Bonds had recommended a knee arthroscopy at that time. However, the patient is reporting that the pain is located along the lateral aspect of the joint line. He is looking for additional conservative treatment at this time. He is considering a cortisone injection to the right knee. The patient was offered a cortisone injection in the right knee with 80 mg of DepoMedrol. The patient was explained the risks, benefits, and alternatives to receiving this injection. After receiving consent for the injection, the patient had the procedure done while in the office today. The patient tolerated the procedure well with no complications. Follow-up will be PRN, or sooner if needed Right knee MRI obtained on 11/03/2024: IMPRESSION: Complex tear of the posterior horn of the medial meniscus as described. Minimal medial and patellofemoral compartment osteoarthritis with a trace joint effusion. X-ray of the right knee obtained on 12/18/2023: No acute findings. Coding Level of Care Code Est Pt Level 3 (71032) Diagnoses Internal derangement of right knee M23.91 CPT Codes Coding - Large joint: 23987 - Large joint ([id number])
--- OUTSIDE RECORDS SUMMARY | 2025-06-12 14:58 | XMS_ITS | Encounter Summary ---
Author Organization [employer] Address [address] [place] [address] Care Team Providers Care Network Operations Specialist Name Role Phone Kelly Rodriguez NP Primary Care Provider [phone] Encounter Details Date Type Department Care Team ([facility] st Contact Info) Description 09/18/2024 Orders Only [facility] [address] [place] [address] Jordan Fink MD [address] [place] [address] Social History Tobacco Use Types Packs/Day Years Used Date Smoking Tobacco: Every Day Cigarettes 0.5 40 Passive Smoke Exposure: Current Smokeless Tobacco: Never Alcohol Use Standard Drinks/Week Comments Never 0 (1 standard drink = 0.6 oz pur e alcohol) Depression Answer Date Recorded Patient Health Questionnaire-9 Score 0 08/18/2023 Housing Stability Answer Date Recorded What is your housing situation today? I have archie israel 09/05/[address] you li ve. Do you have problems with any of the following? None of the above 09/05/2023 Food Insecurity Answer Date Recorded Within the past 12 months, y ou worried that your food would run out before you got money to buy more: Never True 09/05/2023 Within the past 12 months,th e food you bought just didn't last and you didn't have enough money to get more: Never True Transportation Answer Date Recorded In the past 12 months, has l ack of transportation kept you from medical appts, meetings, work or from getting things needed for daily living? No 09/05/2023 Utilities Answer Date Recorded In the past 12 months, has t he electric, gas, oil or water company threatened to shut off services in your home? No 09/05/2023 Depression Answer Date Recorded Patient Health Questionnaire-2 Score 0 08/18/2023 Sex and Gender Information Value Date Recorded Sex Assigned at Male 09/19/2022 10:18 AM EDT Legal Sex Male 10:18 AM EDT Gender Identity Male 09/19/2022 10:18 AM EDT Sexual Orientation Choose not to disclose 2021 10:18 AM EDT documented as of this encounter Plan of Treatment Not on file documented as of this encounter Visit Diagnoses Not on filedocumented in this encounter Additional Health Concerns Assessment Noted Time PHQ-9 Depression Total Score: 0 08/18/20 23 9:45 AM EDT documented as of this encounter Care Teams Network Operations Specialist Relationship Specialty Start Date End Date Kelly Rodriguez NP [address] [place] [address] PCP - General Family Medicine 09/09/24 documented as of this encounter
--- OUTSIDE RECORDS SUMMARY | 2025-06-12 14:58 | XMS_ITS ---
Author Name [facility] Organization Unknown Encounters Encounter Type Encounter Reason Primary Diagnosis Location Date Emergency SOB AND COUGH X 3 WEEKS Cough, unspecified [facility] 03/14/2024 Care Team Organization Name Specialty Phone Email Start Date End [facility] Sergio Barakat 03/14/2024 04/15/2024 [facility] 03/14/2024
[2025-06-12 15:06] VITALS: BMI 38.2
== END 2025-06-12 15:36 | disposition home or self-care (01) ==
LOC: HO.HOS 14:51
PROVIDERS: PCP Nurse Practitioner Family; Visit Provider Physician Assistant
DX: M23.91 Unspecified internal derangement of right knee (principal)
CPT/HCPCS: 20610; 99213

== ENCOUNTER → 2025-06-12 14:50 | Outpatient (BNVA) | payer MEDICARE, MEDICAID, SELFPAY | PROVIDERS: PCP Nurse Practitioner Family; Visit Provider Physician Assistant | DX: M23.91 Unspecified internal derangement of right knee (principal); M25.561 Pain in right knee | CPT/HCPCS: 20610; 99212; J1010; J2003 ==

== ENCOUNTER 2025-06-16 16:12 | Outpatient (REF) | payer MEDICARE, MEDICAID, SELFPAY ==
--- NOTE | ~2025-06-16 | CT_ITS ---
EXAMINATION: CT ABDOMEN AND PELVIS WITHOUT CONTRAST CLINICAL INFORMATION: Left upper quadrant pain and constipation for several months COMPARISON: None available. TECHNIQUE: Multidetector volumetric imaging was performed from the superior aspect of the liver through the pubic symphysis. Sagittal and coronal reformatted images were obtained on the technologist's workstation. This CT examination was performed using dose optimization techniques as appropriate, variously including the following: *Automated exposure control *Adjustment of mA and/or kV according to patient size (this includes techniques or standardized protocols for targeted exams where dose is matched to indication/reason for exam; i.e. extremities or head) *Use of iterative reconstruction technique DLP: 1279 mGY*cm FINDINGS: LUNG BASES: The visualized lung bases are unremarkable. LIVER, GALLBLADDER, AND BILIARY TREE: The liver is normal in size, shape, and attenuation. No focal hepatic lesion or biliary ductal dilatation is present. The gallbladder is unremarkable with no evidence of radiopaque gallstones, gallbladder wall thickening, or obvious pericholecystic inflammatory changes. PANCREAS: Unremarkable. SPLEEN: Unremarkable. ADRENAL GLANDS: Unremarkable. KIDNEYS AND URETERS: 4 x 7 mm ossification in the right kidney probably represents stone. 3 mm nonobstructing stone is present in the lower left kidney. BLADDER: Unremarkable. GASTROINTESTINAL TRACT: Gastrointestinal tract is unremarkable. The stool burden is within normal limits. The appendix is within normal limits. ABDOMINAL WALL: Small left inguinal hernia contains adipose tissue. LYMPH NODES: Normal. VASCULAR: Multiple vascular calcifications are present. PELVIC VISCERA: Unremarkable. OSSEOUS STRUCTURES: Vacuum phenomena is noted in multiple disc spaces in the lower thoracic spine and L2-3. L3-4 demonstrates grade 1 anterolisthesis. Posterior pedicle screws and rods were placed at L4-5. There has been posterior decompression surgery. Degenerative cystic changes are present in the right acetabular roof. There are osteophytes along both acetabular roofs. There are osteophytes involving the fovea of bilateral femoral heads. SI joints demonstrate vacuum phenomena subchondral sclerosis. CT/CT abdomen pelvis wo IV con IMPRESSION: 4 x 7 mm nonobstructing stone in the mid right kidney and 3 mm nonobstructing stone in the lower left kidney. Multifocal degenerative changes. Small left inguinal hernia contains adipose tissue. Fleischner guidelines were followed. Electronically signed by: Jose L Hunt MD 06/16/2025 05:33 PM EDT
--- OUTSIDE RECORDS SUMMARY | 2025-06-16 16:16 | XMS_ITS | Encounter Summary ---
Author Organization [employer] Address [address] [place] [address] Care Team Providers Care Clinical Research Assistant Name Role Phone Kelly Rodriguez NP Primary Care Provider [phone] Encounter Details Date Type Department Care Team ([facility] st Contact Info) Description 09/18/2024 Orders Only [facility] [address] [place] [address] Jordan Fink MD [address] [place] [address] Social History Tobacco Use Types Packs/Day Years [...] documented as of this encounter Care Teams Clinical Research Assistant Relationship Specialty Start Date End Date Kelly Rodriguez NP [address] [place] [address] PCP - General Family Medicine 09/09/24 documented as of this encounter
== END 2025-06-16 16:13 | disposition home or self-care (01) ==
LOC: HO.CT 16:12
PROVIDERS: Visit Provider Emergency Medicine
DX: R10.12 Left upper quadrant pain (principal); K59.00 Constipation, unspecified
CPT/HCPCS: 74176

== ENCOUNTER → 2025-06-16 16:14 | Outpatient (BNV) | payer MEDICARE, MEDICAID, SELFPAY | PROVIDERS: Visit Provider Radiology Diagnostic Radiology | DX: R10.12 Left upper quadrant pain (principal) | CPT/HCPCS: 74176 ==

== ENCOUNTER 2025-07-04 11:03 | Emergency (ER) | payer MEDICARE, MEDICAID, SELFPAY ==
--- NOTE | ~2025-07-04 | XR_ITS ---
EXAMINATION: XR CERVICAL SPINE 2-3 VIEWS HISTORY: pain, no trauma COMPARISON: Comparison is made with the prior examination dated 05/18/2016. FINDINGS: AP, lateral, and open-mouth odontoid views of the cervical spine are submitted. Osseous mineralization is normal. Seven cervical vertebral bodies are identified maintaining normal height and alignment without evidence of fracture or subluxation. There is mild disc space narrowing at the C3-4 level. The remaining intervertebral disc spaces are maintained. The odontoid and lateral masses of C1 are intact. There is no prevertebral soft tissue swelling. XR/XR cervical spine 3V IMPRESSION: Mild disc space narrowing at C3-4. Otherwise unremarkable examination of the cervical spine. Electronically signed by: Sukhi Peters MD 07/04/2025 11:32 AM EDT
[2025-07-04 11:06] VITALS: BP 159/79; PULSE 68; RESP 18; TEMP 37; O2SAT 100; BMI 37.3
--- NOTE | 2025-07-04 11:09 | ED.GENADULT ---
HPI - General Adult General Chief complaint: Neck Pain/Injury Stated complaint: pain in the back of head and neck Time Seen by Provider: 07/04/25 11:28 Source: patient Mode of arrival: ambulatory Limitations: no limitations History of Present Illness ED Provider: Loyda Lemus APRN HPI narrative: 64-year-old male with a history of chronic back pain on gabapentin/prn motrin, HTN, HLD, COPD here with complaints of 3 days of neck pain and neck stiffness with no known injury or trauma. Patient feels that when he woke up in the morning that he may have slept wrong. He reports pain and stiffness with difficulty moving the head from [id number]. There is no reports of dizziness, vision changes, headache, vomiting. Patient denies any fevers or chills. Denies any history of neck surgery or neck problems. He has been taking his gabapentin and Motrin at home with continued pain. He says the Motrin does help his pain but does not completely alleviated Related Data Home Medications ?Medication ?Instructions ?Recorded ?Confirmed aspirin 81 mg tablet,delayed 81 mg PO DAILY 01/17/22 11/18/24 release atorvastatin 40 mg tablet 40 mg PO BEDTIME 01/17/22 11/18/24 chlorthalidone 25 mg tablet 12.5 mg PO QAM 01/17/22 11/18/24 fluticasone propionate 110 2 puff PO BID 01/17/22 11/18/24 mcg/actuation HFA aerosol inhaler (Flovent HFA) ibuprofen 800 mg tablet 800 mg PO TID 01/17/22 11/18/24 lisinopril 30 mg tablet (Zestril) 30 mg PO DAILY 01/17/22 11/18/24 melatonin 5 mg tablet 5 - 10 mg PO BEDTIME PRN insomnia 01/17/22 11/18/24 tiotropium 2.5 mcg-olodaterol 2.5 2 puff inhalation DAILY 01/17/22 11/18/24 mcg/actuation mist for inhalation (Stiolto Respimat) duloxetine 30 mg capsule,delayed 1 cap PO DAILY 05/13/22 11/18/24 release ferrous sulfate 325 mg (65 mg 1 tab PO Q OTHER DAY 05/13/22 11/18/24 iron) tablet (FeroSul) simethicone 125 mg chewable tablet 1 tab PO TID PRN gas 05/13/22 11/18/24 (Gas Relief Extra Strength) cholecalciferol (vitamin D3) 50 50 mcg PO DAILY 09/09/22 11/18/24 mcg (2,000 unit) capsule (Vitamin D3) fluticasone propionate 50 1 spray intranasal BID 09/09/22 11/18/24 mcg/actuation nasal spray,suspension gabapentin 100 mg capsule 100 mg PO TID 09/09/22 11/18/24 pregabalin 50 mg capsule 50 mg PO BID 09/09/22 11/18/24 sennosides 8.6 mg tablet (senna) 17.2 mg PO DAILY 09/09/22 11/18/24 sildenafil 100 mg tablet (Viagra) 50 mg PO DAILY PRN Sexual Activity 09/09/22 11/18/24 Previous Rx's ?Medication ?Instructions ?Recorded bisacodyl 5 mg tablet,delayed 10 mg (2 x 5 mg) PO BEDTIME 2 days 04/11/25 release (Dulcolax (bisacodyl)) #4 tabs peg 3350-electrolytes 236 240 ml PO Q10M 1 day #4,000 mL 04/11/25 gram-22.74 gram-6.74 gram-5.86 gram solution (Golytely) cyclobenzaprine 10 mg tablet 10 mg PO TID PRN muscle spasm #12 07/04/25 tabs lidocaine 5 % topical patch 1 patch topical DAILY #15 ea 07/04/25 (Lidoderm) naproxen 500 mg tablet 500 mg PO BID PRN pain #30 tabs 07/04/25 Allergies Allergy/AdvReac Type Severity Reaction Status Date / Time Iodinated Contrast Media Allergy Unknown Verified 07/04/25 11:12 Review of Systems Review of Systems: Yes all other systems are reviewed and are negative Constitutional: Constitutional: Reports no additional constitutional complaints, Denies body ache(s), Denies chills, Denies fever(s), Denies headache(s) and Denies weakness Eyes: Eyes: Reports no additional eye complaints and Denies change in vision ENT: Reports system reviewed and no additional complaints, except as documented, Denies dizziness, Denies headache(s), Denies nasal congestion, Denies nasal discharge and Reports neck pain Cardiovascular: Cardiovascular: Reports no additional cardiovascular complaints, Denies chest pain, Denies leg edema and Denies dyspnea Respiratory: Respiratory: Reports no additional respiratory complaints, Denies cough and Denies dyspnea Gastrointestinal: Gastrointestinal: Reports no additional gastrointestinal complaints, Denies abdominal pain, Denies diarrhea, Denies nausea and Denies vomiting Genitourinary: Genitourinary: Denies urinary incontinence Musculoskeletal: Musculoskeletal: Reports no additional musculoskeletal complaints, Denies back pain, Denies arthralgias, Denies joint swelling, Reports neck pain, Denies numbness and Denies tingling Integumentary/Breasts: Skin/Breast: Reports system reviewed and no additional complaints, except as docu and Denies rash Neurologic: Reports system reviewed and no additional complaints, except as documented, Denies Abnormal speech present, Denies dizziness, Denies headache(s), Denies numbness, Denies tingling and Denies weakness PMFSH Past Medical History Attestation statement: The following information was validated with the patient. Source: old records reviewed and nursing notes reviewed Medical History History of positive PPD Colon cancer screening Obstructive sleep apnea (adult) (pediatric) COPD (chronic obstructive pulmonary disease) Surgical History Hx of surgical procedure (07/31/23) History of back surgery Family History Family History Mother Diabetes Brittle bone disease COPD (chronic obstructive pulmonary disease) High blood pressure Thyroid disease Thyroid cancer Father Lupus High blood pressure Social History Social History Household Members: Spouse Housing: House Are you a primary manager home healthcare to a significant other at home: No Do you presently have visiting nurse or other home services: No Patient Tobacco Use Status: Current everyday Tobacco user Tobacco use type: Cigarette Advance Directives: No Advance Directives Information Provided: Yes Do you have a plan to hurt others: No Plan Current occupational status: disabled Physical Exam ED Vital Signs: Vital Signs - 24 hr 07/04/25 11:06 07/04/25 12:14 Temperature 98.6 F 98.6 F Pulse Rate 68 68 Respiratory Rate 18 18 Blood Pressure 159/79 H 159/79 H Pulse Oximetry 100 100 Oxygen Delivery Method Room Air Room Air BMI result Body Mass Index 37.3 Const General: cooperative, healthy appearing, comfortable and no acute distress Orientation/consciousness: patient oriented x3 Limitations: no limitations HENMT Head: Yes normal to inspection Ears: hearing grossly normal bilaterally and TM's normal bilaterally General nose exam: Normal external nose present Face and sinus: Yes normal facial exam Mouth: Normal oral and palatal mucosa present Throat: Yes posterior oropharynx normal, Yes tonsils normal and Yes uvula midline Eyes General: appearance normal, both eyes and all related structures Pupils: Equal, round and reactive pupils present Neck Other: No cervical midline tenderness, step-offs or deformities There is palpable muscle spasm noted to the left trapezius region and over the left rhomboid area. There is also soft tissue tenderness bilaterally noted. Patient has pain with lateral rotation of his head. No difficulty with flexion or extension. Neck: Yes normal visual inspection Chest Chest palpation & inspection: normal inspection of the chest Resp Effort & Inspection: normal respiratory effort Auscultation: clear to auscultation bilaterally Cardio Rate: regular rate Rhythm: regular rhythm Peripheral pulses: Peripheral pulses 2+ throughout GI Inspection: Yes normal to inspection Palpation (GI): Soft to palpation and nontender Auscultation: normal bowel sounds Back/Spine/Pelvis Thoracic/Lumbar Spine: thoracic and lumbar spine normal to inspection Skin General skin exam: no rashes or lesions noted Neuro General: patient oriented x3, moves all extremities, no focal motor deficits and normal sensation to monofilament Cranial nerves: Yes CN's II-XII intact bilaterally, Yes Equal, round and reactive pupils present, Yes Bilaterally intact EOM present, Yes Nystagmus not present, Yes Normal facial strength present and Yes Midline tongue present Cognition (Neuro): normal cognition Speech: No Abnormal speech present Gait exam (Neuro): Normal gait present Motor exam (neuro): 5/5 motor strength present throughout Sensory Exam: Normal double simultaneous stimulation for sensation Deep tendon reflexes (DTR's): Right triceps reflex intensity grade: 2+, Left triceps reflex intensity grade: 2+, Rt Biceps (C5, C6): 2+, Left biceps reflex intensity grade: 2+, Right brachioradialis reflex intensity grade: 2+ and Left brachioradialis reflex intensity grade: 2+ Extrem General: Yes normal to inspection Course Course Course Narrative: Perri Lemus APRN 07/04 1114 This is a rapid medical exam. Defer additional HPI, ROS and PE to primary provider. 64-year-old male with a history of chronic back pain here with complaints of 3 days of neck pain and neck stiffness with no known injury or trauma. Will obtain x-rays. Likely torticollis and patient will be discharged home with supportive measures Medications Administered Discontinued Medications Generic Name Dose Route Start Last Admin Trade Name Freq PRN Reason Stop Dose Admin Naproxen 500 mg 07/04/25 12:11 07/04/25 12:14 Naproxen 500 Mg Tablet PO 07/04/25 12:12 500 mg ONCE ONE Administration Medical Decision Making Medical Decision Making [facility] Narrative: 64-year-old male with a history of chronic back pain on gabapentin/prn motrin, HTN, HLD, COPD here with complaints of 3 days of neck pain and neck stiffness with no known injury or trauma. Patient feels that when he woke up in the morning that he may have slept wrong. He reports pain and stiffness with difficulty moving the head from [id number]. There is no reports of dizziness, vision changes, vomiting. Patient denies any fevers or chills. Denies any history of neck surgery or neck problems. He has been taking his gabapentin and Motrin at home with continued pain. He says the Motrin does help his pain but does not completely alleviated There is palpable muscle spasm on exam. There is also pain on palpation over the soft tissue areas. There is no midline tenderness, step-offs deformities. There is a normal neurological exam with no focal deficits. There is no red flag symptoms reported. Will obtain x-rays Likely torticollis Differential Diagnosis Differential Diagnoses: The differential diagnosis associated with the presentation includes Torticollis Low suspicion for cord compression, epidural abscess, malignancy, fracture, meningitis/encephalitis based on clinical exam and HPI Admission/Observation Consideration of admission/observation: Escalation of care including admission/observation considered Low suspicion for cord compression, epidural abscess, malignancy, fracture, meningitis/encephalitis based on clinical exam and HPI requiring advanced imaging, urgent consultation and or transfer to tertiary care center Independent Interpretation I performed an independent interpretation of an: Plain X-Ray Interpretation: I independently viewed the x-ray and agree with the radiology report Radiology Impression Discussion of test interpretation with radiology: I have reviewed the radiologist's reading. Radiologist Impression: [id number] [place] [address] XRay Report Signed Patient: Errol Garcia MR#: [id number] : 1960 Acct:[id number] Age/Sex: 64 / M ADM Date: 07/04/25 Loc: HO.ED Attending Dr: Ordering Physician: Loyda Lemus NP Date of Service: 07/04/25 Procedure(s): XR cervical spine 3V Accession Number(s): [id number] cc: Loyda Lemus ASSISTANT PROFESSOR OF ART; Physician,Unknown ~ EXAMINATION: XR CERVICAL SPINE 2-3 VIEWS HISTORY: pain, no trauma COMPARISON: Comparison is made with the prior examination dated 05/18/2016. FINDINGS: AP, lateral, and open-mouth odontoid views of the cervical spine are submitted. Osseous mineralization is normal. Seven cervical vertebral bodies are identified maintaining normal height and alignment without evidence of fracture or subluxation. There is mild disc space narrowing at the C3-4 level. The remaining intervertebral disc spaces are maintained. The odontoid and lateral masses of C1 are intact. There is no prevertebral soft tissue swelling. XR/XR cervical spine 3V IMPRESSION: Mild disc space narrowing at C3-4. Otherwise unremarkable examination of the cervical spine. Electronically signed by: Sukhi Peters MD 07/04/2025 11:32 AM EDT Independent Historian Clinical information obtained from an independent historian. History obtained from or confirmed by: Spouse Tests considered The following testing was considered but not selected: see above Prescription Management I considered prescription management with: Pain Medication Discharge Plan Discharge Clinical Impression: Torticollis Patient Disposition: Home, Self-Care Instructions: Spasmodic Torticollis (ED) Additional Instructions: Your x-ray shows some disc narrowing of the cervical spine but no additional bony abnormality You may take naproxen instead of ibuprofen and your other home medications. Take the additional medications as prescribed Apply heat or ice to the area Gentle stretching Follow-up with your primary care doctor in 5-7 days for any persistent symptoms Prescriptions: New cyclobenzaprine 10 mg tablet 10 mg PO TID PRN (Reason: muscle spasm) Qty: 12 0RF lidocaine [Lidoderm] 5 % adhesive patch,medicated 1 patch topical DAILY Qty: 15 0RF Rx Instructions: leave on most painful area for up to 12 hrs naproxen 500 mg tablet 500 mg PO BID PRN (Reason: pain) Qty: 30 0RF No Action ferrous sulfate [FeroSul] 325 mg (65 mg iron) tablet 1 tab PO Q OTHER DAY simethicone [Gas Relief Extra Strength] 125 mg tablet,chewable 1 tab PO TID PRN (Reason: gas) duloxetine 30 mg capsule,delayed release(DR/EC) 1 cap PO DAILY lisinopril [Zestril] 30 mg tablet 30 mg PO DAILY ibuprofen 800 mg tablet 800 mg PO TID chlorthalidone 25 mg tablet 12.5 mg PO QAM Stiolto Respimat 2.5-2.5 mcg/actuation mist 2 puff inhalation DAILY Flovent HFA 110 mcg/actuation HFA aerosol inhaler 2 puff PO BID melatonin 5 mg tablet 5 - 10 mg PO BEDTIME PRN (Reason: insomnia) aspirin 81 mg tablet,delayed release (DR/EC) 81 mg PO DAILY atorvastatin 40 mg tablet 40 mg PO BEDTIME sennosides [senna] 8.6 mg tablet 17.2 mg PO DAILY cholecalciferol (vitamin D3) [Vitamin D3] 50 mcg (2,000 unit) capsule 50 mcg PO DAILY sildenafil [Viagra] 100 mg tablet 50 mg PO DAILY PRN (Reason: Sexual Activity) fluticasone propionate 50 mcg/actuation spray,suspension 1 spray intranasal BID gabapentin 100 mg capsule 100 mg PO TID pregabalin 50 mg capsule 50 mg PO BID peg 3350-electrolytes [Golytely] 236-22.74-6.74 -5.86 gram recon soln 240 ml PO Q10M 1 Days Qty: 4000 0RF Rx Instructions: until fecal effluent is clear; do not exceed a total volume of 2,000 mL bisacodyl [Dulcolax (bisacodyl)] 5 mg tablet,delayed release (DR/EC) 10 mg PO BEDTIME 2 Days Qty: 4 0RF Referrals: Physician,Unknown J [Primary Care Provider, Medical] Interventions: ED Discharge Assessment Last Done: 07/04/25 12:14 Discharge Date/Time: 07/04/25 12:15 Print Language: Ghanaian
[2025-07-04 12:14] VITALS: BP 159/79; PULSE 68; RESP 18; TEMP 37; O2SAT 100
== END 2025-07-04 12:15 | disposition home or self-care (01) ==
PROVIDERS: Emergency Provider Emergency Medicine
DX: M43.6 Torticollis (principal); M54.50 Low back pain, unspecified; M54.2 Cervicalgia; Z79.899 Other long term (current) drug therapy; F17.210 Nicotine dependence, cigarettes, uncomplicated
CPT/HCPCS: 72040; 99283

== ENCOUNTER → 2025-07-04 11:13 | Outpatient (BNV) | payer MEDICARE, MEDICAID, SELFPAY | PROVIDERS: Emergency Provider Emergency Medicine; Visit Provider Radiology Diagnostic Radiology | DX: M54.2 Cervicalgia (principal) | CPT/HCPCS: 72040 ==